=== PATIENT | female | born 1970 | race African-American/Black ===

== ENCOUNTER 2017-06-12 12:48 | Emergency (ER) | payer BC | END 2017-06-12 15:28 | disposition home or self-care (01) | LOC: D.ER 12:48 | DX: B02.9 Zoster without complications (principal); E11.9 Type 2 diabetes mellitus without complications; I10 Essential (primary) hypertension; F17.200 Nicotine dependence, unspecified, uncomplicated ==

== ENCOUNTER 2019-07-24 08:00 | Outpatient (CLI) | payer MEDICAID | END 2019-07-24 23:59 | disposition home or self-care (01) | LOC: D.MAMMO 08:00 | PROVIDERS: ATTEND Emergency Medicine | DX: Z12.31 Encounter for screening mammogram for malignant neoplasm of breast (principal) ==

== ENCOUNTER 2020-01-02 23:34 | Inpatient (IN) | payer MEDICAID ==
[~2020-01-02] VITALS: Ht 160 cm; Wt 149.7 kg
[2020-01-03 02:43] LABS: ANION GAP 9.8 mmol/L (8-16); BASOPHILS 0.1 % (0-2); CALCIUM 8.3 mg/dL (8.5-10.1); CARBON DIOXIDE 30.8 mmol/L (21.0-32.0); CREATININE - SERUM 1.1 mg/dL (0.6-1.3); EOSINOPHILS 0.1 % (0-7); HEMATOCRIT 38.9 % (36.0-48.0); HEMOGLOBIN 12.5 g/dL (12-16); IMMATURE GRANULOCYTES 0.3 % (0-5); LYMPHOCYTES 10.4 % (15-50); MCH 27.6 pg (26.0-34.0); MCHC 32.1 g/dL (31.0-37.0); MCV 85.9 fL (80.0-100.0); MEAN PLATELET VOLUME 11.1 fL (7.4-10.4); MONOCYTES 7.4 % (2-11); NEUTROPHILS 81.7 % (40-80); PLATELET COUNT 217 10x3/uL (130-400); POTASSIUM - SERUM 3.6 mmol/L (3.5-5.1); RBC 4.53 10x6/uL (4.00-5.40); RDW 15.5 % (11.5-14.5); WBC 16.7 10x3/uL (4.8-10.8)
[2020-01-03 02:49] LABS: ALBUMIN 2.4 g/dL (3.4-5.0); BILIRUBIN - TOTAL 0.58 mg/dL (0.2-1.3); PROTEIN - SERUM 7.8 g/dL (6.4-8.2)
--- NOTE | 2020-01-03 03:21 | NUR ---
NS BOLUS AND CLINDAMYCIN INFUSING ON ADMISSION.
--- NOTE | 2020-01-03 03:30 | NUR ---
PT ARRIVED TO UNIT VIA WHEELCHAIR, AMBULATED TO BATHROOM WITHOUT DIFFICULTY. HAD BOWEL MOVEMENT THEN WENT TO BED. AOX4, FRIEND AT BEDSIDE. NS BOLUS IN PROGRESS TO LEFT HAND. LEFT GROIN ABCESS. RED AND SWOLLEN, RED/BROWN DRAINAGE. STATES IT APPEARED THREE DAYS AGO AND HAD PROGRESSIVELY WORSENED EVEN AFTER CLEANING IT WITH ALCOHOL AND NEOSPORIN. STATES PAIN 9/10, JUST RECIEVED TYLENOL, DOES NOT WANT ANYTHING ELSE FOR PAIN AFTER OFFERING MORPHINE. REMINDED PT SHE IS NPO. VERBALIZED UNDERSTANDING. DENIES OTHER NEEDS AT THIS TIME. CL IN REACH, WILL CTM
[2020-01-03 03:56] VITALS: BP 116/56; BMI 58.5
[2020-01-03] MEDS ORDERED: ELAVIL25 MG PO (04:00)
[2020-01-03] MEDS ORDERED: NORVASC10 MG PO (04:00)
[2020-01-03] MEDS ORDERED: METOPROLOL TART50 MG PO (04:01)
[2020-01-03] MEDS ORDERED: ZANAFLEX4 MG PO (04:01)
[2020-01-03] MEDS ORDERED: COZAAR100 MG PO (04:01)
[2020-01-03] MEDS ORDERED: NOVOLOG MIX (04:04)
[2020-01-03 07:04] LABS: ANION GAP 12.4 mmol/L (8-16); CALCIUM 8.1 mg/dL (8.5-10.1); CARBON DIOXIDE 25.9 mmol/L (21.0-32.0); MAGNESIUM - SERUM 1.8 mg/dL (1.8-2.4); PHOSPHOROUS 2.6 mg/dL (2.5-4.9); POTASSIUM - SERUM 3.3 mmol/L (3.5-5.1)
[2020-01-03 07:05] LABS: APTT 34.7 SECONDS (22.8-39.4)
[2020-01-03 07:06] LABS: INR 1.14 (0.85-1.17); PROTIME 14.5 SECONDS (11.6-15.0)
[2020-01-03 07:08] LABS: BASOPHILS 0.1 % (0-2); EOSINOPHILS 0.1 % (0-7); HEMOGLOBIN 11.5 g/dL (12-16); IMMATURE GRANULOCYTES 0.3 % (0-5); LYMPHOCYTES 11.9 % (15-50); MCH 27.4 pg (26.0-34.0); MCHC 31.9 g/dL (31.0-37.0); MCV 85.9 fL (80.0-100.0); MEAN PLATELET VOLUME 11.5 fL (7.4-10.4); MONOCYTES 9.5 % (2-11); NEUTROPHILS 78.1 % (40-80); PLATELET COUNT 194 10x3/uL (130-400); RBC 4.19 10x6/uL (4.00-5.40); RDW 15.6 % (11.5-14.5); WBC 14.6 10x3/uL (4.8-10.8)
--- NOTE | 2020-01-03 07:44 | NUR ---
RESTING IN BED WITH EYES CLOSED, BREATHING EVEN AND NONLABORED, NO S/S OF DISTRESS, FRIEND AT THE BEDSIDE. IV LOCATED TO LEFT HAND RUNNING NS @ 125ML. WILL CONT TO MONITOR.
[2020-01-03 07:54] VITALS: BP 88/61
[2020-01-03 11:56] VITALS: BP 138/65
[2020-01-03 12:21] VITALS: BMI 58.4
[2020-01-03 15:08] VITALS: Ht 160 cm; Wt 149.7 kg
[2020-01-03 15:41] VITALS: BP 134/71
--- NOTE | 2020-01-03 16:06 | NUR ---
Scheduled today for I & D by Dr. Lord.
[2020-01-03 16:16] VITALS: BP 141/93
--- NOTE | 2020-01-03 16:24 | NUR ---
RECEIVED PT BACK FROM RECOVER RN KATELIN, PT IS AWAKE, ALERT AND ORIENTED ASKING FOR SOMETHING TO DRINK, OBTAINED POST OP VS AND VSS. SPOKE TO DR TONG AT DESK AND RESTARTED DIABETIC DIET. PT IS RESTING WELL, EASILY AWAKENED, NO S/SX OF DISTRESS. CONTINUE WITH PLAN OF CARE
--- NOTE | 2020-01-03 18:10 | NUR ---
PT IS SITTING UP IN BED EATING DINNER, C/O STINGING AND SORENESS IN AREA NOT SO MUCH PAIN. WENT OVER PAIN PUMP ORDERED WITH PT AND AT THIS POINT SHE IS DECLINING ROTOR BLADE INSTALLER AT HIS TIME, ENCOURAGED PT TO TRY AND USE IV PAIN MED RIGHT BEFORE DRESSING CHANGE IN THE MORNING IT WILL MOST LIKELY HURT AND BE VERY UNCOMFORTABLE. BED IN LOWEST POSITION, CL IN EACH CONTINUE WITH PLAN OF ACRE
--- NOTE | 2020-01-03 18:50 | NUR ---
PATIENT RESTING IN BED WITH EYES OPEN. NO S/S OF DISTRESS. NO C/O AT THIS TIME. PATIENT IS ALERT AND ORIENTATED. PATIENT HAS LEFT HAND IV NORMAL SALINE @ 125 ML/HR. IV IS PATENT WITHOUT REDNESS, SWELLING, OR TENDERNESS. PATIENT WOUND HAS A TOWEL OVER IT TO CATCH SOME OF THE DRAINAGE. THE WOUND ON THE INSIDE OF LEFT LEG IS DRAINING AND HAS SOME SWELLING AROUND, BUT PATIENT STATED, "IT FEELS A LOT BETTER THAN BEFORE." CALL LIGHT IN PLACE. WILL CONTINUE TO MONITOR.
[2020-01-03 19:30] VITALS: BP 122/71
[2020-01-04 00:30] VITALS: BP 103/60
[2020-01-04 05:00] VITALS: BP 109/56
[2020-01-04 05:07] LABS: BASOPHILS 0.1 % (0-2); EOSINOPHILS 0.2 % (0-7); HEMATOCRIT 35.3 % (36.0-48.0); HEMOGLOBIN 11.1 g/dL (12-16); IMMATURE GRANULOCYTES 0.4 % (0-5); LYMPHOCYTES 7.5 % (15-50); MCH 27.3 pg (26.0-34.0); MCHC 31.4 g/dL (31.0-37.0); MCV 86.9 fL (80.0-100.0); MEAN PLATELET VOLUME 11.3 fL (7.4-10.4); MONOCYTES 10.2 % (2-11); NEUTROPHILS 81.6 % (40-80); PLATELET COUNT 228 10x3/uL (130-400); RBC 4.06 10x6/uL (4.00-5.40); RDW 15.8 % (11.5-14.5); WBC 15.9 10x3/uL (4.8-10.8)
--- NOTE | 2020-01-04 05:09 | NUR ---
I have reviewed this patient and I concur with the Shift Assessment completed by the Licensed Practical Nurse today this shift.
[2020-01-04 05:17] LABS: CALCIUM 7.5 mg/dL (8.5-10.1); CARBON DIOXIDE 26.1 mmol/L (21.0-32.0); CREATININE - SERUM 0.9 mg/dL (0.6-1.3); MAGNESIUM - SERUM 1.7 mg/dL (1.8-2.4); PHOSPHOROUS 2.5 mg/dL (2.5-4.9)
[2020-01-04 05:25] LABS: POTASSIUM - SERUM 4.1 mmol/L (3.5-5.1)
--- NOTE | 2020-01-04 08:00 | NUR ---
PT HAS DRAINAGE IN INCISION AREA, STATED PAIN IS AT A 9 AND WOULD LIKE MORPHINE, EXPLAINED TO PT THAT SHE HAS A BULK MAIL CLERK ORDERED AND AGAIN EXPLAINED THE USE OF BULK MAIL CLERK AND PT SEEMED MORE COMFORTABLE WITH STARTING BULK MAIL CLERK. CHANGDE PT LINENS AND GAVE PT TOWEL TO PLACE OVER INCISION AREA TO CATCH DRAINAGE. WILL CHANGE PT WET TO DRY PACKING AFTER LUNCH, PT FRIEND AT BEDSIDE, NO S/SX OF DISTRESS O OTHER NEEDS VOICED BY PATIENT AT THIS TIME, CONTINUE WITH PLAN OF CARE
[2020-01-04 09:06] VITALS: BP 107/46
[2020-01-04 12:45] VITALS: BP 101/59
--- NOTE | 2020-01-04 14:40 | MORECARE ---
CASE MANAGEMENT DISCHARGE SUMMARY PATIENT: FLORIDA CHAHAL UNIT: [id number] ADM DATE: 01/03/20 AGE: 49 : 66 SEX: F ROOM/BED: D.2223 AUTHOR: DESHAUN JOHNSON PHYSICIAN: REFERRING PHYSICIAN: JASON MICHEL MD DATE OF SERVICE: 01/04/20 Discharge Plan Patient Name: FLORIDA CHAHAL [facility] [facility] 1970 Planned Disposition: Home with Home Health Anticipated Discharge Date: Discharge Date: Expected LOS: Initial Reviewer: [email or web address] Initial Review Date: 01/03/2020 Generated: 01/04/20 3:40 pm DCPIA - Discharge Planning Initial Assessment Updated by [email or web address]: Josefa Tatum on 01/04/20 2:40 pm * Is the patient Alert and Oriented? Yes * How many steps to enter\exit or inside your home? 3/0 * PCP Dr. Michel * Pharmacy [facility] * Preadmission Environment Home Alone * ADLs Independent * Equipment None * List name and contact numbers for known caregivers / representatives who currently or will assist patient after discharge: Lisette Jackson - [phone] Luisito Spencer [facility] - [phone] * Verbal permission to speak to the caregivers and representatives has been obtained from the patient. Yes * Community resources currently utilized None * Additional services required to return to the preadmission environment? No * Can the patient safely return to the preadmission environment? Yes * Has this patient been hospitalized within the prior 30 days at any hospital? No Patient Name: FLORIDA CHAHAL Page [id number] at 1440 All edits/amendments must be made on the electronic document DICTATION DATE: 01/04/20 1440 RANGE MANAGEMENT SPECIALIST: JESSENIA 01/04/20 1440 RPT#: [id number] DC DATE: STATUS: ADM IN [facility] [address] [place] [address] END OF REPORT
--- NOTE | 2020-01-04 14:49 | MORECARE ---
CASE MANAGEMENT DISCHARGE SUMMARY PATIENT: FLORIDA CHAHAL UNIT: [id number] ADM DATE: 01/03/20 AGE: 49 : 66 SEX: F ROOM/BED: D.2223 AUTHOR: ALEX,DOC PHYSICIAN: REFERRING PHYSICIAN: JASON MICHEL MD DATE OF SERVICE: 01/04/20 Discharge Plan Patient Name: FLORIDA CHAHAL Facility: [facility]:[place] : 1970 Planned Disposition: Home with Home Health Anticipated Discharge Date: Discharge Date: Expected LOS: Initial Reviewer: [email or web address] Initial Review Date: 01/03/2020 Generated: 01/04/20 3:48 pm Comments DCP- Discharge Planning Updated by [email or web address]: Josefa Tatum on 01/04/20 1:[address] Patient Name: FLORIDA CHAHAL Admission Status: ER Accout number: [id number] Admission Date: 01-03-2020 : 1970 Admission Diagnosis: Attending: JASON WALLER Current LOS: 1 Anticipated DC Date: Planned Disposition: Home with Home Health Primary Insurance: [place] PRIVATE OPTIONS [employer] Discharge Planning Comments: CM met with patient to complete initial dc planning assessment. CM educated patient on the CM role and verbal consent given by patient to complete assessment. Patient lives at home alone. I verified address and phone number on face sheet. At discharge patient plans to return and feels this is a safe discharge. CM discussed availability of home health, rehab services, and medical equipment. I informed patient that typically she would need home health after discharge for packing changes to her left groin. I informed her that she would need a teachable rental boats caretaker that could be available for home health to instruct on how to do her packing on days that home health was not there. She states that she has many friends that are nurses that could help with that. She is going to ask one of her friends today which home health agency she should choose. I left her a list from our SAMANTHA list on home health agencies. CM will continue to follow and will assist as needed with dc plans/needs. Operations Tech: Josefa Tatum DCPIA - Discharge Planning Initial Assessment Updated by [email or web address]: Josefa Tatum on 01/04/20 2:40 pm * Is the patient Alert and Oriented? Yes * How many steps to enter\exit or inside your home? 3/0 * PCP Dr. Michel * Pharmacy [facility] [address] * Preadmission Environment Home Alone * ADLs Independent * Equipment None * List name and contact numbers for known caregivers / representatives who currently or will assist patient after discharge: Lisette Jackson - [phone] Luisito Palmer [facility] - [phone] * Verbal permission to speak to the caregivers and representatives has been obtained from the patient. Yes * Community resources currently utilized None * Additional services required to return to the preadmission environment? No * Can the patient safely return to the preadmission environment? Yes * Has this patient been hospitalized within the prior 30 days at any hospital? No Last DP export: 01/04/20 1:40 pm Patient Name: FLORIDA CHAHAL Page [id number] at 1449 All edits/amendments must be made on the electronic document DICTATION DATE: 01/04/201447 COMPOUNDING TECHNICIAN: JESSENIA 01/04/201447 RPT#: [id number] DC DATE: STATUS: ADM IN [facility] [address] [place] [address] END OF REPORT
[2020-01-04 17:15] VITALS: BP 100/64
--- NOTE | 2020-01-04 18:53 | NUR ---
HAVE NOT SEEN ORDERS FOR DRESSING CHANGE, AWAITING DR TONG FOR ORDERS, SPOKE TO NURSE INTERNET CONSULTANT AND WAS TOLD SOMETIMES THE SURGEONS WILL WAIT A DAY BEFORE CHANGING PACKING. HAVE BEEN CHANGING TOWELS EVERY TIME PT GETS UP TO RESTROOM PT HAS DRAINAGE IN INCISONAL AREA. CONTINUE WITH PLAN OF CARE
--- NOTE | 2020-01-04 19:29 | NUR ---
LYING IN BED,WITHOUT NEEDS.CALL LIGHT IN REACH
[2020-01-04 19:30] VITALS: BP 129/64
--- NOTE | 2020-01-04 20:00 | NUR ---
PATIENT RESTING IN BED WITH EYES OPEN AND FRIEND AT BEDSIDE. NO S/S OF DISTRESS. NO C/O AT THIS TIME. PATIENT HAS IV IN THE R HAND NORMAL SALINE @ 125 ML/HR. PATIENT ALSO HAS A BEAMING INSPECTOR DILAUDID. IV IS PATENT WITHOUT REDNESS, SWELLING, OR TENDERNESS. PATIENT HAS PACKED WOUND IN THE LEFT GROIN/THIGH AREA. CALL LIGHT IN PLACE WILL CONTINUE TO MONITOR.
--- NOTE | 2020-01-04 20:00 | NUR ---
PATIENT RESTING IN BED WITH EYES CLOSED AND SPOUSE AT BEDSIDE. NO S/S OF DISTRESS. NO C/O AT THIS TIME. PATIENT HAS RIGHT UPPER ARM MIDLINE THAT IS SALINE LOC. IV IS PATENT WITHOUT REDNESS, SWELLING, OR TENDERNESS. PATIENT IS UP WITH ASSIST SINCE HIP HAS BEEN FOUNF TO BE FRACTURED. PATIENT PAIN MEDICATION SWITCHED BACK TO PERCOCET-10 BUT COMPLAINS, "IT IS JUST NOT CUTTING IT. I NEED IT FOUR HOURS." CALL LIGHT IN PLACE. WILL CONTINUE TO MONITOR.
[2020-01-05 00:30] VITALS: BP 117/61
--- NOTE | 2020-01-05 01:06 | NUR ---
I have reviewed this patient and I concur with the Shift Assessment completed by the Licensed Practical Nurse today this shift.
[2020-01-05 05:30] VITALS: BP 144/77
[2020-01-05 06:57] LABS: BASOPHILS 0.1 % (0-2); EOSINOPHILS 1.1 % (0-7); HEMATOCRIT 35.3 % (36.0-48.0); IMMATURE GRANULOCYTES 0.3 % (0-5); LYMPHOCYTES 13.4 % (15-50); MCH 26.8 pg (26.0-34.0); MCHC 31.2 g/dL (31.0-37.0); MCV 86.1 fL (80.0-100.0); MEAN PLATELET VOLUME 10.6 fL (7.4-10.4); MONOCYTES 8.8 % (2-11); NEUTROPHILS 76.3 % (40-80); PLATELET COUNT 225 10x3/uL (130-400); RDW 15.7 % (11.5-14.5)
[2020-01-05 07:00] VITALS: BP 127/72
[2020-01-05 07:04] LABS: CALCIUM 8.1 mg/dL (8.5-10.1); CARBON DIOXIDE 27.3 mmol/L (21.0-32.0); CHLORIDE - SERUM 102 mmol/L (98-107); CREATININE - SERUM 0.8 mg/dL (0.6-1.3); PHOSPHOROUS 2.7 mg/dL (2.5-4.9); POTASSIUM - SERUM 3.6 mmol/L (3.5-5.1); SODIUM 137 mmol/L (136-145); eGFR NON AFRICAN AMERICAN 80 mL/min (90-120)
[2020-01-05 07:06] LABS: CALC OSMOLALITY 272 mosm/kg (275-300); GLUCOSE 138 mg/dL (74-106); UREA NITROGEN 4 mg/dL (7-18)
[2020-01-05 07:28] LABS: WBC 11.3 10x3/uL (4.8-10.8)
--- NOTE | 2020-01-05 08:00 | NUR ---
ASSESSMENT PER FLOW SHEET. PT IS WITHOUT DISTRESS.DENIES NEEDS.FAMILY AT BEDSIDE
[2020-01-05 10:44] VITALS: BP 137/74
[2020-01-05 13:24] VITALS: BP 118/68
--- NOTE | 2020-01-05 16:59 | MORECARE ---
CASE MANAGEMENT DISCHARGE SUMMARY PATIENT: FLORIDA CHAHAL UNIT: [id number] ADM DATE: 01/03/20 AGE: 49 : 66 SEX: F ROOM/BED: D.2223 AUTHOR: ALEX,DOC PHYSICIAN: REFERRING PHYSICIAN: JASON MICHEL MD DATE OF SERVICE: 01/05/20 Discharge Plan Patient Name: FLORIDA CHAHAL Facility: [facility]:[place] : 1970 Planned Disposition: Home with Home Health Anticipated Discharge Date: Discharge Date: Expected LOS: Initial Reviewer: [email or web address] Initial Review Date: 01/03/2020 Generated: 01/05/20 5:58 pm Comments DCP- Discharge Planning Updated by [email or web address]: Josefa Tatum on 01/05/20 3:[address] Met with patient for the third time today, she was supposed to speak with friends about home health. States she hasn't been able to talk to anyone again today. She has the [facility] and [facility] I called [facility] liaison for [facility], and order and clinical faxed. CM will continue to follow and assist with discharge planning/needs. DCP- Discharge Planning Updated by [email or web address]: Josefa Tatum on 01/04/20 1:[address] Patient Name: FLORIDA CHAHAL Admission Status: ER Accout number: [id number] Admission Date: 01-03-2020 : 1970 Admission Diagnosis: Attending: JASON WALLER Current LOS: 1 Anticipated DC Date: Planned Disposition: Home with Home Health [place] Insurance: [place] PRIVATE OPTIONS [facility] Discharge Planning Comments: CM met with patient to complete initial dc planning assessment. CM educated patient on the CM role and verbal consent given by patient to complete assessment. Patient lives at home alone. I verified address and phone number on face sheet. At discharge patient plans to return and feels this is a safe discharge. CM discussed availability of home health, rehab services, and medical equipment. I informed patient that typically she would need home health after discharge for packing changes to her left groin. I informed her that she would need a teachable home visit field care manager that could be available for home health to instruct on how to do her packing on days that home health was not there. She states that she has many friends that are nurses that could help with that. She is going to ask one of her friends today which home health agency she should choose. I left her a list from our SAMANTHA list on home health agencies. CM will continue to follow and will assist as needed with dc plans/needs. In School Suspension Coordinator: Josefa Reddysusie DCPIA - Discharge Planning Initial Assessment Updated by [email or web address]: Josefa Deepti on 01/04/20 2:40 pm * Is the patient Alert and Oriented? Yes * How many steps to enter\exit or inside your home? 3/0 * PCP Dr. Michel * Pharmacy [facility] on [address] * Preadmission Environment Home Alone * ADLs Independent * Equipment None * List name and contact numbers for known caregivers / representatives who currently or will assist patient after discharge: Lisette Jackson - [phone] Luisito Del [facility] - [phone] * Verbal permission to speak to the caregivers and representatives has been obtained from the patient. Yes * Community resources currently utilized None * Additional services required to return to the preadmission environment? No * Can the patient safely return to the preadmission environment? Yes * Has this patient been hospitalized within the prior 30 days at any hospital? No External Providers External Provider: [facility] Next Contact Date: Service Request Date: Service Type: Resolution: Reviewer: Comments: Coverage Notice Reviewer: [email or web address] - Josefa Tatum Notice Issued Date-Time: 01/05/2020 16:53 Notice Type: Patient Choice Letter Notice Delivered To: Patient Relationship to Patient: Self Bag Making Machine Operator Name: Delivery Method: HAND - Hand Delivered Nadia Days: Prior Verbal Notification: Recipient Understood Notice: Yes Recipient Signature: Yes Med Rec Note Co-signed by Attending: Coverage Notice Comment: [facility] for 1. [facility]. [facility] Last DP export: 01/04/20 1:49 pm Patient Name: FLORIDA CHAHAL Page [phone] at 1659 All edits/amendments must be made on the electronic document DICTATION DATE: 01/05/201657 AUTOMOBILE BODY REPAIRER: JESSENIA 01/05/201657 RPT#: [id number] DC DATE: STATUS: ADM IN [facility] [address] [facility] [place] [address] END OF REPORT
[2020-01-05 17:59] VITALS: BP 106/69
--- NOTE | 2020-01-05 19:37 | NUR ---
PATIENT WITH HOB ELEVATED. EYES OPEN SPONTANEOUSLY BUT PATIENT DOES NOT RESPOND VERBALLY, ONLY MOANS WITH REPOSITIONING. SEE PREVIOUS NOTE ABOUT IV. PATIENT HAS BRUISES AROUND THROUGH AREA. WEARING 2L NC AT THIS TIME. MULTIPLE BRUISES TO BOTTOM, ARMS, HIPS, AND LEGS. ABDOMEN SOFT TO PALPATION. BOWEL SOUNDS HYPOACTIVE. NO DISTRESS NOTED. CLOSE TO NURSES STATION FOR MONITORING. FALL PRECAUTIONS IN PLACE, CATA ALARM ON. SCD'S ON BILATERALLY.
--- NOTE | 2020-01-05 19:37 | NUR ---
ASSESSING PATIENT. IV TO THE LEFT UPPER ARM INFILTRATED. DC'D, ELEVATED, AND WARM PACK APPLIED.
--- NOTE | 2020-01-05 21:35 | NUR ---
DRESSING CHANGED COMPLETED PER ORDER.
[2020-01-06 01:39] VITALS: BP 121/68
--- NOTE | 2020-01-06 03:39 | NUR ---
I have reviewed this patient and I concur with the Shift Assessment completed by the Licensed Practical Nurse today this shift.
--- NOTE | 2020-01-06 04:56 | NUR ---
HAT IN ROOM TO OBTAIN URINE SAMPLE
[2020-01-06 05:12] LABS: BASOPHILS 0.2 % (0-2); EOSINOPHILS 1.9 % (0-7); HEMATOCRIT 33.8 % (36.0-48.0); HEMOGLOBIN 10.6 g/dL (12-16); IMMATURE GRANULOCYTES 0.6 % (0-5); LYMPHOCYTES 10.6 % (15-50); MCHC 31.4 g/dL (31.0-37.0); MCV 86.2 fL (80.0-100.0); NEUTROPHILS 77.7 % (40-80); PLATELET COUNT 261 10x3/uL (130-400); RBC 3.92 10x6/uL (4.00-5.40); RDW 15.7 % (11.5-14.5); WBC 10.8 10x3/uL (4.8-10.8)
[2020-01-06 05:40] LABS: CALC OSMOLALITY 272 mosm/kg (275-300); CALCIUM 7.8 mg/dL (8.5-10.1); CARBON DIOXIDE 28.4 mmol/L (21.0-32.0); CHLORIDE - SERUM 101 mmol/L (98-107); CREATININE - SERUM 0.8 mg/dL (0.6-1.3); MAGNESIUM - SERUM 1.8 mg/dL (1.8-2.4); PHOSPHOROUS 2.7 mg/dL (2.5-4.9); POTASSIUM - SERUM 3.7 mmol/L (3.5-5.1); SODIUM 135 mmol/L (136-145); UREA NITROGEN 4 mg/dL (7-18); eGFR NON AFRICAN AMERICAN 80 mL/min (90-120)
[2020-01-06 05:51] LABS: GLUCOSE 214 mg/dL (74-106)
[2020-01-06 06:02] VITALS: BP 130/65
--- NOTE | 2020-01-06 08:21 | NUR ---
AWAKE AND ALERT. ORIENTED X3. NO C/O AT THIS TIME. LUNGS ARE CLEAR BILATERALLY, OCCASSIONALLY PRODUCTIVE COUGH NOTED. SKIN IS INTACT WITHOUT REDNESS EXCEPT WOUND TO LEFT GROIN WHICH HAS A DRY INTACT DRESSING IN PLACE. IV TO RIGHT HAND IS PATENT WITHOUT REDNESS AT INSERTION SITE. DENIES NEEDS. NO BM IN 2 DAYS. WILL MONITOR.
[2020-01-06 08:38] VITALS: BP 143/81
--- NOTE | 2020-01-06 09:00 | NUR ---
UP TO BR WITH ONE PERSON MIN ASSIST. URINE CLEAR YELLOW. SPECIMEN SENT TO LAB. ATE MOST OF BREAKFAST. DENIES NEEDS. REPORTS GOOD PAIN MANAGEMENT WITH USE OF POUNCING MACHINE OPERATOR.
[2020-01-06 09:09] LABS: BILIRUBIN NEGATIVE (NEGATIVE); GLUCOSE 100 mg/dL (NEGATIVE); KETONE SMALL mg/dL (NEGATIVE); NITRITE NEGATIVE (NEGATIVE); SPECIFIC GRAVITY 1.015 (1.005-1.020); UROBILINOGEN NORMAL (NORMAL)
[2020-01-06 09:10] LABS: AMORPHOUS SEDIMENT >1+ /lpf (NONE SEEN); BACTERIA MODERATE /hpf (NEGATIVE); EPITHELIAL CELLS 0-5 /hpf (0-5); RED CELLS - URINE 0-5 /hpf (0-5); WHITE CELLS - URINE 0-5 /hpf (NEGATIVE)
[2020-01-06 13:36] VITALS: BP 126/73
[2020-01-06 18:27] VITALS: BP 118/70
--- NOTE | 2020-01-06 18:45 | NUR ---
RESTING QUIETLY IN BED. DENIES NEEDS. NO CHANGES NOTED.
[2020-01-06 19:30] VITALS: BP 136/62
--- NOTE | 2020-01-07 00:45 | NUR ---
RIGHT HAND IV SWOLLEN AND TENDER. REMOVED IV CATHETER INTACT. RESITED 22G IV TO LEFT FOREARM 2ND ATTEMPT. HUNG SCHEDULED ABX. NO OTHER NEEDS. WILL CONTINUE TO MONITOR.
[2020-01-07 00:46] VITALS: BP 134/72
[2020-01-07 04:30] VITALS: BP 149/74
[2020-01-07 05:31] LABS: BASOPHILS 0.2 % (0-2); EOSINOPHILS 2.4 % (0-7); HEMATOCRIT 33.6 % (36.0-48.0); HEMOGLOBIN 10.5 g/dL (12-16); IMMATURE GRANULOCYTES 1.1 % (0-5); LYMPHOCYTES 17.6 % (15-50); MCH 26.9 pg (26.0-34.0); MCHC 31.3 g/dL (31.0-37.0); MCV 86.2 fL (80.0-100.0); MEAN PLATELET VOLUME 9.8 fL (7.4-10.4); NEUTROPHILS 68.7 % (40-80); PLATELET COUNT 280 10x3/uL (130-400); RDW 15.7 % (11.5-14.5); WBC 8.3 10x3/uL (4.8-10.8)
[2020-01-07 06:05] LABS: ALBUMIN 1.8 g/dL (3.4-5.0); ALKALINE PHOSPHATASE 142 U/L (30-120); ALT (SGPT) 23 U/L (10-68); BILIRUBIN - TOTAL 0.14 mg/dL (0.2-1.3); CALC OSMOLALITY 273 mosm/kg (275-300); CARBON DIOXIDE 29.8 mmol/L (21.0-32.0); CHLORIDE - SERUM 100 mmol/L (98-107); CREATININE - SERUM 0.8 mg/dL (0.6-1.3); GLUCOSE 189 mg/dL (74-106); MAGNESIUM - SERUM 1.8 mg/dL (1.8-2.4); PHOSPHOROUS 3.2 mg/dL (2.5-4.9); POTASSIUM - SERUM 3.4 mmol/L (3.5-5.1); PROTEIN - SERUM 6.6 g/dL (6.4-8.2); SODIUM 136 mmol/L (136-145); UREA NITROGEN 5 mg/dL (7-18); eGFR NON AFRICAN AMERICAN 80 mL/min (90-120)
[2020-01-07 09:11] VITALS: BP 128/78
[2020-01-07 13:29] VITALS: BP 135/86
[2020-01-07 17:10] VITALS: BP 140/96
[2020-01-07 19:30] VITALS: BP 137/64
--- NOTE | 2020-01-08 | NUR ---
REMOVED PACKING TO LEFT GROIN INCISION. MODERATE SEROSANG DRAINAGE. REPACKED WITH SALINE SOAKED KERLIX AND COVERED WITH DRY GAUZE. APPLIED MOIST HEAT PACK TO SWOLLEN GROIN. PRE-MEDICATED WITH NORCO-10 ABOUT AN HOUR BEFORE DRESSING CHANGE. NO OTHER NEEDS. WILL CONTINUE TO MONITOR.
[2020-01-08 00:41] VITALS: BP 147/69
[2020-01-08 04:30] VITALS: BP 152/71
[2020-01-08 06:55] LABS: BASOPHILS 0.2 % (0-2); EOSINOPHILS 2.1 % (0-7); HEMATOCRIT 33.1 % (36.0-48.0); HEMOGLOBIN 10.4 g/dL (12-16); IMMATURE GRANULOCYTES 1.6 % (0-5); LYMPHOCYTES 19.4 % (15-50); MCH 26.9 pg (26.0-34.0); MCHC 31.4 g/dL (31.0-37.0); MCV 85.5 fL (80.0-100.0); MEAN PLATELET VOLUME 10.4 fL (7.4-10.4); MONOCYTES 10.8 % (2-11); NEUTROPHILS 65.9 % (40-80); PLATELET COUNT 324 10x3/uL (130-400); RBC 3.87 10x6/uL (4.00-5.40); RDW 15.8 % (11.5-14.5)
[2020-01-08 07:07] LABS: ALBUMIN 1.9 g/dL (3.4-5.0); ANION GAP 9.3 mmol/L (8-16); BILIRUBIN - TOTAL 0.22 mg/dL (0.2-1.3); CALCIUM 8.3 mg/dL (8.5-10.1); CARBON DIOXIDE 30.4 mmol/L (21.0-32.0); CREATININE - SERUM 0.9 mg/dL (0.6-1.3); POTASSIUM - SERUM 3.7 mmol/L (3.5-5.1); PROTEIN - SERUM 6.9 g/dL (6.4-8.2)
--- NOTE | 2020-01-08 07:10 | NUR ---
PT RESTING IN BED. NO SIGNS OF DISTRESS. IV TO LEFT FORARM PATENT NO REDNESS OR TENDERNESS. INCISION TO LEFT GROIN AREA. DRESSING CLEAN AND INTACT. DENIES ANY FURTHER NEED AT THIS TIME. CALL LIGHT IN REACH. BED LOW POSITION. FAMILY AT BEDSIDE AT THIS TIME.
[2020-01-08 09:04] VITALS: BP 161/73
--- NOTE | 2020-01-08 10:23 | MORECARE ---
CASE MANAGEMENT DISCHARGE SUMMARY PATIENT: FLORIDA CHAHAL UNIT: [id number] ADM DATE: 01/03/20 AGE: 49 : 66 SEX: F ROOM/BED: D.2223 AUTHOR: ALEX,DOC PHYSICIAN: REFERRING PHYSICIAN: JASON MICHEL MD DATE OF SERVICE: 01/08/20 Discharge Plan Patient Name: FLORIDA CHAHAL Facility: [facility]:[place] : 1970 Planned Disposition: Home with Home Health Anticipated Discharge Date: Discharge Date: Expected LOS: Initial Reviewer: [email or web address] Initial Review Date: 01/03/2020 Generated: 01/08/20 11:22 am Comments DCP- Discharge Planning Updated by [email or web address]: Josefa Deepti on 01/08/20 9:[address] [facility] is out of network for insurance. Referral for home health sent to [facility] and clinical faxed. CM will continue to follow and assist with discharge planning/needs. DCP- Discharge Planning Updated by [email or web address]: Josefa Reddysusie on 01/05/20 3:[address] Met with patient for the third time today, she was supposed to speak with friends about home health. States she hasn't been able to talk to anyone again today. She has the list and chose [facility]. I called [facility] liaison for [facility], and order and clinical faxed. CM will continue to follow and assist with discharge planning/needs. DCP- Discharge Planning Updated by [id number]: Josefa Reddysusie on 01/04/20 1:[address] Patient Name: FLORIDA CHAHAL Admission Status: ER Accout number: [id number] Admission Date: 01-03-2020 : 1970 Admission Diagnosis: Attending: JASON WALLER Current LOS: 1 Anticipated DC Date: Planned Disposition: Home with Home Health Primary Insurance: [place] PRIVATE OPTIONS [facility] Discharge Planning Comments: CM met with patient to complete initial dc planning assessment. CM educated patient on the CM role and verbal consent given by patient to complete assessment. Patient lives at home alone. I verified address and phone number on face sheet. At discharge patient plans to return and feels this is a safe discharge. CM discussed availability of home health, rehab services, and medical equipment. I informed patient that typically she would need home health after discharge for packing changes to her left groin. I informed her that she would need a teachable patient centered care specialist that could be available for home health to instruct on how to do her packing on days that home health was not there. She states that she has many friends that are nurses that could help with that. She is going to ask one of her friends today which home health agency she should choose. I left her a list from our SAMANTHA list on home health agencies. CM will continue to follow and will assist as needed with dc plans/needs. Advertising Layout Worker: Josefa Tatum DCPIA - Discharge Planning Initial Assessment Updated by [email or web address]: Josefa Deepti on 01/04/20 2:40 pm * Is the patient Alert and Oriented? Yes * How many steps to enter\exit or inside your home? 3/0 * PCP Dr. Michel * Pharmacy [facility] on [facility] * Preadmission Environment Home Alone * ADLs Independent * Equipment None * List name and contact numbers for known caregivers / representatives who currently or will assist patient after discharge: Lisette Jackson - [phone] Luisito Palmer [facility] - [phone] * Verbal permission to speak to the caregivers and representatives has been obtained from the patient. Yes * Community resources currently utilized None * Additional services required to return to the preadmission environment? No * Can the patient safely return to the preadmission environment? Yes * Has this patient been hospitalized within the prior 30 days at any hospital? No External Providers External Provider: [facility] Next Contact Date: Service Request Date: Service Type: Resolution: Reviewer: Comments: Coverage Notice Reviewer: [email or web address] - Josefa Deepti Notice Issued Date-Time: 01/05/2020 16:53 Notice Type: Patient Choice Letter Notice Delivered To: Patient Relationship to Patient: Self Sheet Metal Assembler And Riveter Name: Delivery Method: HAND - Hand Delivered Nadia Days: Prior Verbal Notification: Recipient Understood Notice: Yes Recipient Signature: Yes Med Rec Note Co-signed by Attending: Coverage Notice Comment: [facility] for [facility]. [facility] Last DP export: 01/05/20 3:59 pm Patient Name: FLORIDA CHAHAL Page [phone] at 1023 All edits/amendments must be made on the electronic document DICTATION DATE: 01/08/[address] TRAIN DRIVER: JESSENIA 01/08/20 1022 RPT#: [id number] DC DATE: STATUS: ADM IN [facility] [address] [place] [address] END OF REPORT
[2020-01-08 13:34] VITALS: BP 149/81
--- NOTE | 2020-01-08 14:28 | NUR ---
Nutrition follow-up: Diet: ADA consistent CHO PO intake 75-100% of meals labs reviewed Wt: 329# PO intake good at this time Will continue to provide food choices and honor food peferences within diet restrictions. RDN following.
--- NOTE | 2020-01-08 16:44 | NUR ---
I have reviewed this patient and I concur with the Shift Assessment completed by the Licensed Practical Nurse today this shift.
[2020-01-08 16:55] VITALS: BP 172/82
[2020-01-08 20:47] VITALS: BP 164/90
--- NOTE | 2020-01-08 22:51 | NUR ---
PT SITTING UP IN BED CONCERNED ABOUT BP SLOWLY RISING BACK UP. PT BP MEDICATIONS HAVE BEEN PLACED ON HOLD SINCE ADMIT, WILL CHECK WITH DR'S IN THE MORNING AFTER PT SURGERY. NO OTHER NEEDS VOICED, CL IN REACH CONTINUE WITH PLAN OF CARE
--- NOTE | 2020-01-08 23:48 | NUR ---
I have reviewed this patient and I concur with the Shift Assessment completed by the Licensed Practical Nurse today this shift.
--- NOTE | 2020-01-08 23:56 | NUR ---
PIV TO LFA INFILTRATED, REMOVED, TIP INTACT. NEW PIV STARTED IN LFA, X2 ATTEMPTS. 20G, SL. PT TOLERATED WELL. NO SIGNS OF DISTRESS. PT DENIES ANY OTHER PAINS OR NEEDS AT THIS TIME. CL IN REACH, BED IN LOWEST POSITION.
[2020-01-09 01:13] VITALS: BP 154/92
[2020-01-09 04:55] VITALS: BP 157/83
[2020-01-09 05:18] LABS: BASOPHILS 0.2 % (0-2); EOSINOPHILS 2.1 % (0-7); HEMATOCRIT 33.1 % (36.0-48.0); HEMOGLOBIN 10.4 g/dL (12-16); IMMATURE GRANULOCYTES 1.3 % (0-5); LYMPHOCYTES 18.6 % (15-50); MCH 26.9 pg (26.0-34.0); MCHC 31.4 g/dL (31.0-37.0); MCV 85.8 fL (80.0-100.0); MEAN PLATELET VOLUME 9.5 fL (7.4-10.4); MONOCYTES 8.6 % (2-11); NEUTROPHILS 69.2 % (40-80); PLATELET COUNT 340 10x3/uL (130-400); RBC 3.86 10x6/uL (4.00-5.40); RDW 15.6 % (11.5-14.5); WBC 8.7 10x3/uL (4.8-10.8)
[2020-01-09 05:48] LABS: ALBUMIN 2.1 g/dL (3.4-5.0); ANION GAP 10.2 mmol/L (8-16); BILIRUBIN - TOTAL 0.18 mg/dL (0.2-1.3); CALCIUM 8.6 mg/dL (8.5-10.1); CARBON DIOXIDE 30.3 mmol/L (21.0-32.0); CREATININE - SERUM 0.9 mg/dL (0.6-1.3); POTASSIUM - SERUM 3.5 mmol/L (3.5-5.1); PROTEIN - SERUM 6.9 g/dL (6.4-8.2)
--- NOTE | 2020-01-09 08:25 | NUR ---
PT INQUIRED ON HOW HER FRIENDS OR FAMILY CAN GET MORE INFORMATION ABOUT HER TREATMENT PLAN AND INFECTION, ASKED PT IF SHE HAS SET UP A CODE FOR HER ACCOUNT AND EXPLAINED THAT WHOMEVER SHE CHOSE TO GIVE THAT INFORMATION TO WE WOULD BE ABLE TO GIVE THEM INFORMATION REQUESTED. NO S/SX OF DISTRESS, ADMINISTERED SCHEDULED MEDICATION. CL IN REACH, BED IN LOWEST POSITION, CONTINUE WITH PLAN OF CARE
[2020-01-09 08:32] LABS: % SATURATION 20 % (15-55); IRON 35 ug/dl (35-150); TOTAL IRON BIND CAPACITY 168 ug/dl (260-445); UNSAT IRON BIND CAPACITY 133 ug/dl (150-375)
[2020-01-09 09:17] VITALS: BP 174/95
[2020-01-09 12:23] VITALS: BP 139/75
--- NOTE | 2020-01-09 14:46 | NUR ---
PT LYING IN BED AWAITING SURGERY, CALLED SURGERY AND SPOKE TO PATIENCE IN REGARDS TO TIME AND PER PATIENCE PT IS STILL ON SCHEDULE JUST WAITING FOR A ROOM. RELAYED MESSAGE TO PT, NO OTHER NEEDS VOICED, CONTINUE WITH PLAN OF CARE
--- NOTE | 2020-01-09 14:53 | NUR ---
I have reviewed this patient and I concur with the Shift Assessment completed by the Licensed Practical Nurse today this shift.
[2020-01-09 17:03] VITALS: BP 158/90
--- NOTE | 2020-01-09 17:55 | OP ---
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 PROCEDURES: Wide excisional debridement with marsupialization and packing of Breanne gangrene of the left side of the perineum. SURGEON: Francisco Javier Tong MD PAPER DELIVERER: None. BLOOD LOSS: 100 cc. ANESTHESIA: General. COMPLICATIONS: None. The risks, possible complications and alternatives to the procedure were explained to the patient. She elects to proceed. The discussion specifically included, but was not limited to, bleeding requiring emergency reoperation, infection, possible need for additional debridement procedures. DESCRIPTION OF PROCEDURE: The patient was conveyed to the operating room urgently on 01/03/2020. General anesthesia was induced by the anesthesia staff. The patient was placed in the lithotomy position. The perineum was sterilely prepped and draped. The area in question is a roll of adipose tissue that was lateral to the labia majora but was also medial to the left thigh. There was a draining area. Through the use of double curvilinear incisions, I incised the skin and subcutaneous tissue. Dimensions of the debridement, including margins, measures 8.0 x 4.2 cm included skin and subcutaneous tissue as well as abscess cavity. I then entered the abscess cavity and was able to bluntly debride necrotic fat in a piecemeal fashion. Hemostasis was achieved with electrocautery. I irrigated with hydrogen peroxide after cultures have been obtained. I then marsupialized the wound with a running locking 3-0 Vicryl Rapide suture. I then packed the wound with two 6-inch Kerlixes that were tied together and soaked in hydrogen peroxide. A sterile dressing was then applied. The patient was then extubated and conveyed to post-anesthesia care unit where she was in stable condition. TRANSINT:[id number] Voice Confirmation ID: [id number] DOCUMENT ID: [id number] OPERATIVE REPORT [id number] FLORIDA CHAHAL ROBERT MD at 1755 CC: [id number] DICTATION DATE: 01/03/20 1521 SCADA ENGINEER: 01/04/20 0307 ADM IN [facility] [address] [id number]
[2020-01-09 20:31] VITALS: BP 165/83
[2020-01-10 00:40] VITALS: BP 151/77
--- NOTE | 2020-01-10 04:45 | NUR ---
PT RESTING IN BED. EYES CLOSED. NO SIGNS OF DISTRESS. BREATHING EVEN AND UNLABORED. IV SITE LT FA DRESSING CLEAN DRY AND INTACT. NO SIGNS OF INFECTION OR INFULTRATION. LUNG SOUNDS CLEAR. BOWEL SOUNDS ACTIVE. DRESSING LT GROIN CLEAN DRY AND INTACT. WILL CONTINUE PLAN OF CARE. CALL LIGHT IN REACH. BED LOWERED AND LOCKED.
--- NOTE | 2020-01-10 04:47 | NUR ---
I have reviewed this patient and I concur with the Shift Assessment completed by the Licensed Practical Nurse today this shift.
[2020-01-10 05:10] VITALS: BP 127/88
[2020-01-10 09:05] VITALS: BP 147/78
[2020-01-10 10:30] LABS: BASOPHILS 0.2 % (0-2); EOSINOPHILS 2.2 % (0-7); HEMATOCRIT 30.9 % (36.0-48.0); HEMOGLOBIN 9.5 g/dL (12-16); IMMATURE GRANULOCYTES 1.7 % (0-5); MCH 26.5 pg (26.0-34.0); MCHC 30.7 g/dL (31.0-37.0); MCV 86.3 fL (80.0-100.0); MEAN PLATELET VOLUME 8.9 fL (7.4-10.4); MONOCYTES 7.6 % (2-11); NEUTROPHILS 64.3 % (40-80); RBC 3.58 10x6/uL (4.00-5.40); RDW 15.7 % (11.5-14.5); WBC 8.3 10x3/uL (4.8-10.8)
[2020-01-10 10:36] LABS: PLATELET COUNT 261 10x3/uL (130-400)
[2020-01-10 10:49] LABS: ALBUMIN 2.1 g/dL (3.4-5.0); ANION GAP 9.1 mmol/L (8-16); BILIRUBIN - TOTAL 0.21 mg/dL (0.2-1.3); CALCIUM 8.4 mg/dL (8.5-10.1); CARBON DIOXIDE 31.8 mmol/L (21.0-32.0); CREATININE - SERUM 0.9 mg/dL (0.6-1.3); POTASSIUM - SERUM 3.9 mmol/L (3.5-5.1)
[2020-01-10 11:04] VITALS: BP 140/73
--- NOTE | 2020-01-10 13:07 | NUR ---
RECEIVED PT BACK FROM RECOVERY, PT IS ASLEEP AND EASILY AWAKENED, NO S/SX OF DISTRESS, CL IN REACH FAMILY AND FRIENDS AT BEDSIDE, CONTINUE WITH PLAN OF CARE
--- NOTE | 2020-01-10 15:30 | NUR ---
LYING IN BED,WITHOUT DISTRESS.CALL LIGHT IN REACH
--- NOTE | 2020-01-10 16:21 | NUR ---
PT LYING IN BED RESTING, NO S/SX OF DISTRESS, CL IN REACH, FRIEND AT BEDSIDE, CONTINUE WITH PLAN OF CARE
[2020-01-10 17:31] VITALS: BP 167/89
[2020-01-10 20:40] VITALS: BP 141/84
[2020-01-11 04:12] VITALS: BP 145/56
--- NOTE | 2020-01-11 04:17 | NUR ---
I have reviewed this patient and I concur with the Shift Assessment completed by the Licensed Practical Nurse today this shift.
--- NOTE | 2020-01-11 04:44 | NUR ---
PT RESTING IN BED. EYES CLOSED. NO SIGNS OF DISTRESS. BREATHING EVEN AND UNLABORED. IV SITE RT FA DESSING CLEAN DRY AND INTACT. NO SIGNS OF INFECTION OR INFULTRATION. 4LO2 NASAL CANNULA. BOWEL SOUNDS ACTIVE. LUNG SOUNDS CLEAR. DRESSING LT GROIN. CLEAN DRY AND INTACT. WILL CONTINUE PLAN OF CARE. CALL LIGHT IN REACH. BED LOWERED AND LOCKED. BED RAILS UPX2.
[2020-01-11 05:16] LABS: BASOPHILS 0.2 % (0-2); EOSINOPHILS 2.6 % (0-7); HEMATOCRIT 28.4 % (36.0-48.0); HEMOGLOBIN 8.7 g/dL (12-16); LYMPHOCYTES 14.9 % (15-50); MCH 26.9 pg (26.0-34.0); MCHC 30.6 g/dL (31.0-37.0); MCV 87.7 fL (80.0-100.0); MEAN PLATELET VOLUME 9.7 fL (7.4-10.4); MONOCYTES 7.7 % (2-11); NEUTROPHILS 73.6 % (40-80); PLATELET COUNT 310 10x3/uL (130-400); RBC 3.24 10x6/uL (4.00-5.40)
[2020-01-11 05:34] LABS: ANION GAP 7.9 mmol/L (8-16); BILIRUBIN - TOTAL 0.21 mg/dL (0.2-1.3); CALCIUM 8.1 mg/dL (8.5-10.1); CARBON DIOXIDE 32.7 mmol/L (21.0-32.0); CREATININE - SERUM 0.9 mg/dL (0.6-1.3); POTASSIUM - SERUM 3.6 mmol/L (3.5-5.1); PROTEIN - SERUM 6.5 g/dL (6.4-8.2)
--- NOTE | 2020-01-11 07:18 | NUR ---
PT UP TO RESTROOM, MODERATE DRAIANAGE, PT STATES PAIN IS AT A 9 BUT UNALE TO ADMINISTER PAIN MEDICATION TIME IS TOO SOON, EXPLAINED TO PT I WILL HAVE HER PAIN MEDS IN WITH HER MORNING MEDS, PT DRESSING WAS CHANGED BY ME LAST NIGHT BEFORE SHIFT CHANGE AND PT HAD A LOT OF DRAINAGE, DID NOT CHANGE PACKING ONLY TOOK OFF AND REPLACED ABD PADS. DID THE SAME TIS MORNING AFTER PT WAS UP TO RESTROOM. WILL CHANGE PACKING AFTER DR HAS SEEN INCISION. CONTINUE WITH PLAN OF CARE
[2020-01-11 09:38] VITALS: BP 145/77
[2020-01-11 13:09] VITALS: BP 125/79
--- NOTE | 2020-01-11 13:27 | NUR ---
I have reviewed this patient and I concur with the Shift Assessment completed by the Licensed Practical Nurse today this shift.
--- NOTE | 2020-01-11 16:00 | NUR ---
FINALLY RECEIVED DAKINS SOLUTION FROM PHARMACY, REMOVED PT'S DRESSING AND AND CLEANED PT WOUND WITH STERILE SALIINE DUE TO PT STATING THAT THE TOP OF HER WOUND WAS BURNING. REPACKED WOUND WITH DAKINS SOAKED KERLEX AND THEN 2 ABD PADS ON TOP AND TAPED EDGES. PT STATED WOUND FELT BETTER AFTERWARDS. NO OTHER NEEDS VOICED, CL IN REACH. CONTINUE WITH PLAN OF CARE
[2020-01-11 16:46] VITALS: BP 132/69
--- NOTE | 2020-01-11 22:05 | NUR ---
PATIENT IS AAOX 4, NO RESP DISTRESS, IV SITE WITHOUT TENDERNESS. DRESSING IS INTACT. PATIENT IS ABLE TO VOICE ALL CONCERNS AND NEEDS. DENIES PAIN. WILL MONITOR.
[2020-01-12] VITALS: BP 127/52
[2020-01-12 04:00] VITALS: BP 147/89
[2020-01-12 06:07] LABS: BASOPHILS 0.2 % (0-2); EOSINOPHILS 2.2 % (0-7); HEMATOCRIT 30.9 % (36.0-48.0); HEMOGLOBIN 9.3 g/dL (12-16); IMMATURE GRANULOCYTES 1.4 % (0-5); LYMPHOCYTES 17.8 % (15-50); MCH 26.6 pg (26.0-34.0); MCHC 30.1 g/dL (31.0-37.0); MCV 88.3 fL (80.0-100.0); MEAN PLATELET VOLUME 9.9 fL (7.4-10.4); MONOCYTES 7.3 % (2-11); NEUTROPHILS 71.1 % (40-80); PLATELET COUNT 339 10x3/uL (130-400); WBC 10.5 10x3/uL (4.8-10.8)
[2020-01-12 06:40] LABS: ANION GAP 9.5 mmol/L (8-16); CALCIUM 8.3 mg/dL (8.5-10.1); CARBON DIOXIDE 31.5 mmol/L (21.0-32.0); CREATININE - SERUM 0.9 mg/dL (0.6-1.3)
[2020-01-12 08:17] VITALS: BP 134/69
--- NOTE | 2020-01-12 09:00 | NUR ---
ASSESSMENT PER FLOW SHEET. PT IS WITHOUT DISTRESS.CALL LIGHT IN REACH
[2020-01-12 11:52] VITALS: BP 146/74
[2020-01-12 14:09] LABS: AEROBE ID Final report (())
--- NOTE | 2020-01-12 16:17 | OP ---
PATIENT NAME: FLORIDA CHAHAL MEDICAL RECORD: [id number] :66 LOCATION:D.MS [id number] ADMISSION DATE:01/03/20 SURGEON: ANTHONY TONG MD DATE OF OPERATION: 01/10/2020 PREOPERATIVE DIAGNOSIS: Breanne gangrene. POSTOPERATIVE DIAGNOSIS: Breanne gangrene with some spread of the gangrenous changes in the anterior, posterior, medial, and lateral dimensions. PROCEDURE: Wide excisional debridement of Breanne's gangrene of perineum, marsupialization and packing of the wound. The dimensions of the debridement, including margins, measured 21.0 cm in the anterior-posterior dimension and 60 mm in the medial-lateral dimension. I then marsupialized the wound. SURGEON: Anthony Tong MD SIGN BUILDER: Lorenzo Yen [facility]. BLOOD LOSS: 250 cc. ANESTHESIA: General. The risks, possible complications, and alternatives to the procedure were explained to the patient. She elects to proceed. The discussion specifically included, but was not limited to, bleeding requiring emergency reoperation, infection, as well as possible need for additional debridement procedures in the future. OPERATIVE COURSE: The patient was conveyed to the operating room electively on 01/10/2020. General anesthesia was induced by the anesthesia staff. The patient was placed in the lithotomy position. The perineum was sterilely prepped and draped. I then began excising portions of the left side of the perineum in an area where there is adipose tissue between the labia majora and the thigh. I did identify some planes that were fairly avascular and were excised, and this represents some spread of the Breanne gangrene. There was a good bit of induration, particularly anteriorly and posteriorly. I sequentially excised portions of indurated skin and subcutaneous tissue. The debridement included skin, subcutaneous adipose tissue, deep adipose tissue, and some thrombosed blood vessels. I excised back to a healthy bleeding tissue. Almost all the indurated tissue was excised. The dimensions of the debridement, including margins, measured 21.0 cm in the anterior-posterior dimension and 60 mm in the medial-lateral dimension. I then marsupialized the wound. The wound was marsupialized with a running locking 3-0 Vicryl Rapide suture. We then packed the wound with 3 of the 6-inch Kerlix gauzes that were soaked with quarter-strength Dakin's. A sterile dressing was then applied. The patient was then extubated and conveyed to the post-anesthesia care unit, where she was in stable condition. TRANSINT:[id number] Voice Confirmation ID: [id number] DOCUMENT ID: [id number] OPERATIVE REPORT [id number] FLORIDA CHAHAL, ANTHONY AYALA at 1617 CC: JASON OTTO MD [id number] DICTATION DATE: 01/10/20929 HORSER UP: 01/10/20 1334 ADM IN [place] [id number] [place] [id number]
[2020-01-12 17:00] VITALS: BP 151/75
--- NOTE | 2020-01-12 18:37 | NUR ---
REMAINS WITHOUT DISTRESS.CONT PLAN OF CARE
--- NOTE | 2020-01-12 19:00 | NUR ---
BEDSIDE REPORT RECEIVED AND CARE OF PT ASSUMED. PT LYING IN LOW MONTANEZ'S POSITION WITH EYES CLOSED. IV TO RIGHT FA PATENT WITH NS INFUSING AT AT KVO. DRESSING TO LEFT GROIN CLEAN AND DRY.
[2020-01-12 20:00] VITALS: BP 160/63
--- NOTE | 2020-01-12 20:43 | NUR ---
HS MEDICATIONS GIVEN TO INCLUDE NORCO PO PER REQUEST FOR PAIN.
[2020-01-13 04:00] VITALS: BP 148/74
[2020-01-13 05:20] LABS: BASOPHILS 0.2 % (0-2); EOSINOPHILS 2.5 % (0-7); HEMATOCRIT 27.3 % (36.0-48.0); HEMOGLOBIN 8.2 g/dL (12-16); IMMATURE GRANULOCYTES 0.9 % (0-5); LYMPHOCYTES 16.4 % (15-50); MCH 26.2 pg (26.0-34.0); MCV 87.2 fL (80.0-100.0); MEAN PLATELET VOLUME 9.5 fL (7.4-10.4); MONOCYTES 7.2 % (2-11); NEUTROPHILS 72.8 % (40-80); PLATELET COUNT 306 10x3/uL (130-400); RBC 3.13 10x6/uL (4.00-5.40); RDW 15.7 % (11.5-14.5); WBC 9.8 10x3/uL (4.8-10.8)
[2020-01-13 05:40] LABS: ALBUMIN 2.2 g/dL (3.4-5.0); ALKALINE PHOSPHATASE 108 U/L (30-120); ALT (SGPT) 21 U/L (10-68); BILIRUBIN - TOTAL 0.17 mg/dL (0.2-1.3); CALC OSMOLALITY 278 mosm/kg (275-300); CALCIUM 8.2 mg/dL (8.5-10.1); CARBON DIOXIDE 32.5 mmol/L (21.0-32.0); CHLORIDE - SERUM 101 mmol/L (98-107); CREATININE - SERUM 0.8 mg/dL (0.6-1.3); GLUCOSE 227 mg/dL (74-106); MAGNESIUM - SERUM 1.9 mg/dL (1.8-2.4); PHOSPHOROUS 3.4 mg/dL (2.5-4.9); POTASSIUM - SERUM 3.6 mmol/L (3.5-5.1); PROTEIN - SERUM 6.7 g/dL (6.4-8.2); SODIUM 137 mmol/L (136-145); UREA NITROGEN 6 mg/dL (7-18); eGFR NON AFRICAN AMERICAN 80 mL/min (90-120)
--- NOTE | 2020-01-13 08:07 | NUR ---
RESTING IN BED, EASILY AROUSED, CONT TO MONITOR SUGARS, DRESSING CHANGE DUE TODAY, LOOK TO COLLECT STOOL
[2020-01-13 08:45] VITALS: BP 146/85
--- NOTE | 2020-01-13 11:00 | NUR ---
DRESSING CHANGED TO LEFT GROIN, NO S/S OF INFECTION, KRISTAN WELL, CONT TO MONITOR D/T POSITION OF DSG
[2020-01-13 12:45] VITALS: BP 161/89
[2020-01-13 16:45] VITALS: BP 161/81
--- NOTE | 2020-01-13 19:00 | NUR ---
BEDSIDE REPORT RECEIVED AND CARE OF PT ASSUMED. PT LYING IN LOW MONTANEZ'S POSITION WITH EYES CLOSED. IV TO RIGHT FA PATENT WITH NS INFUSING AT 10 ML/HR.
[2020-01-13 20:00] VITALS: BP 164/83
--- NOTE | 2020-01-13 20:00 | NUR ---
CHANGED DRESSING AFTER PT VOIDED...DRESSING SOAKED WITH URINE. RE-PACKED WOUND WITH DAIKIN'S SOAKED GAUZE.
--- NOTE | 2020-01-13 20:30 | NUR ---
HS MEDICATIONS GIVEN TO INCLUDE NORCO PO PER REQUEST. FSBS 345 THIS CHECK REQUIRING COVERAGE WITH 12 UNITS OF HUMALOG PER SLIDING SCALE.
--- NOTE | 2020-01-13 22:55 | NUR ---
CHANGED OUTER DRESSING AFTER PT URINATED.
[2020-01-14] VITALS: BP 144/78
--- NOTE | 2020-01-14 02:04 | NUR ---
ASSISTED PT UP TO VOID. CHANGED OUTER DRESSING ON LEFT INGUINAL AREA.
--- NOTE | 2020-01-14 03:00 | NUR ---
IV HURTING. REMOVED WITH CATHETER TIP INTACT. RE-SITED TO LEFT HAND USING 22 GUAGE CATHETER BY FLAVIA ADAIR. IV FLUIDS AND ABX RE-STARTED.
[2020-01-14 05:45] LABS: BASOPHILS 0.2 % (0-2); EOSINOPHILS 2.8 % (0-7); HEMATOCRIT 27.1 % (36.0-48.0); HEMOGLOBIN 8.3 g/dL (12-16); IMMATURE GRANULOCYTES 1.2 % (0-5); LYMPHOCYTES 15.3 % (15-50); MCH 26.6 pg (26.0-34.0); MCHC 30.6 g/dL (31.0-37.0); MCV 86.9 fL (80.0-100.0); MEAN PLATELET VOLUME 9.5 fL (7.4-10.4); MONOCYTES 6.8 % (2-11); NEUTROPHILS 73.7 % (40-80); PLATELET COUNT 276 10x3/uL (130-400); RBC 3.12 10x6/uL (4.00-5.40); WBC 8.8 10x3/uL (4.8-10.8)
[2020-01-14 06:15] LABS: ANION GAP 8.5 mmol/L (8-16); CALCIUM 8.2 mg/dL (8.5-10.1); CARBON DIOXIDE 30.1 mmol/L (21.0-32.0); CREATININE - SERUM 0.9 mg/dL (0.6-1.3); POTASSIUM - SERUM 3.6 mmol/L (3.5-5.1)
--- NOTE | 2020-01-14 07:50 | NUR ---
up to bathroom, no distress noted, iv infusing at kvo, cont to monitor blood sugars and dressing changes
[2020-01-14 08:37] VITALS: BP 105/75
[2020-01-14 13:09] VITALS: BP 172/89
[2020-01-14 17:09] VITALS: BP 182/77
--- NOTE | 2020-01-14 17:43 | NUR ---
DRESSING CHANGES TO WOUND WITH EVERY URINATION D/T DRESSINGS GETTING WET
--- NOTE | 2020-01-14 19:00 | NUR ---
BEDSIDE REPORT RECEIVED AND CARE OF PT ASSUMED. IV TO LEFT HAND PATENT WITH NS INFUSING AT KVO. WILL MONITOR FOR NEEDS.
--- NOTE | 2020-01-14 19:31 | NUR ---
PATE INSERTED, SMALL AMT OF YELLOW URINE RETURNED, KRISTAN WELL, BAG TO GRAVITY,CONT TO MONITOR
--- NOTE | 2020-01-14 20:26 | NUR ---
HS MEDICATIONS GIVEN TO INCLUDE NORCO PO PER REQUEST FOR PAIN. FSBS 240 THIS CHECK REQUIRING COVERAGE WITH 8 UNITS OF INSULIN PER SLIDING SCALE.
[2020-01-14 20:30] VITALS: BP 184/80
[2020-01-15] VITALS (14 sets, daily range): BP systolic 114–179; BP diastolic 57–87
[2020-01-15 07:47] LABS: BASOPHILS 0.3 % (0-2); EOSINOPHILS 2.5 % (0-7); HEMATOCRIT 27.1 % (36.0-48.0); HEMOGLOBIN 8.5 g/dL (12-16); IMMATURE GRANULOCYTES 0.9 % (0-5); LYMPHOCYTES 13.5 % (15-50); MCH 26.4 pg (26.0-34.0); MCHC 31.4 g/dL (31.0-37.0); MCV 84.2 fL (80.0-100.0); MEAN PLATELET VOLUME 9.9 fL (7.4-10.4); MONOCYTES 7.3 % (2-11); NEUTROPHILS 75.5 % (40-80); PLATELET COUNT 302 10x3/uL (130-400); RBC 3.22 10x6/uL (4.00-5.40); RDW 15.7 % (11.5-14.5); WBC 9.2 10x3/uL (4.8-10.8)
[2020-01-15 08:01] LABS: CALC OSMOLALITY 278 mosm/kg (275-300); CALCIUM 8.3 mg/dL (8.5-10.1); CARBON DIOXIDE 28.3 mmol/L (21.0-32.0); CHLORIDE - SERUM 101 mmol/L (98-107); CREATININE - SERUM 0.8 mg/dL (0.6-1.3); GLUCOSE 227 mg/dL (74-106); SODIUM 137 mmol/L (136-145); UREA NITROGEN 6 mg/dL (7-18); eGFR NON AFRICAN AMERICAN 80 mL/min (90-120)
[2020-01-15 08:03] LABS: POTASSIUM - SERUM 4.2 mmol/L (3.5-5.1)
--- NOTE | 2020-01-15 09:31 | NUR ---
RESTING IN BED, NO DISTRESS NOTED, NPO, CONT TO MONITOR TILL SURERY, PATE TO GRAVITY
--- NOTE | 2020-01-15 12:30 | NUR ---
TAKEN TO SURGERY PER BED
--- NOTE | 2020-01-15 19:00 | NUR ---
BEDSIDE REPORT RECEIVED AND CARE OF PT ASSUMED. PT LYING IN LOW MONTANEZ'S POSITION WATCHING TV. DRESSING ON LEFT INGUNAL AREA CLEAN,DRY AND INTACT. IV TO LEFT HAND PATENT WITH NS INFUSING AT KVO. PATE CATHETER DRAINING TO GRAVITY WITH YELLOW URINE IN COLLECTION BAG. WILL MONITOR FOR NEEDS.
--- NOTE | 2020-01-15 20:35 | NUR ---
HS MEDICATIONS GIVEN TO INCLUDE NORCO PO PER REQUEST FOR PAIN. FSBS 307 REQUIRING COVERAGE WITH 12 UNITS OF INSULIN PER SLIDING SCALE.
--- NOTE | 2020-01-15 20:45 | NUR ---
IV TO LEFT HAND HURTING. REMOVED WITH CATHETER TIP INTACT. UNABLE TO RE-SITE AT THIS TIME.
--- NOTE | 2020-01-16 00:05 | NUR ---
ICU NURSE UNABLE TO GAIN IV ACCESS. ORDER PUT IN FOR VASCULAR ACCESS NURSE TO ADDRESS IN AM...PT MAY NEED PICC LINE SHE WILL BE ON ABX FOR A WHILE.
[2020-01-16 01:00] VITALS: BP 164/74
--- NOTE | 2020-01-16 01:25 | NUR ---
IV STARTED TO RIGHT SHOULDER BY BRYANNA CALLEJAS RN FROM ER. 20 GUAGE IN ONE STICK. IV FLUIDS RE-STARTED AND VANC STARTED.
[2020-01-16 04:25] LABS: BASOPHILS 0.2 % (0-2); EOSINOPHILS 2.4 % (0-7); HEMATOCRIT 26.8 % (36.0-48.0); HEMOGLOBIN 8.3 g/dL (12-16); IMMATURE GRANULOCYTES 0.4 % (0-5); LYMPHOCYTES 13.6 % (15-50); MCH 26.3 pg (26.0-34.0); MCV 85.1 fL (80.0-100.0); MEAN PLATELET VOLUME 9.9 fL (7.4-10.4); MONOCYTES 6.4 % (2-11); PLATELET COUNT 323 10x3/uL (130-400); RBC 3.15 10x6/uL (4.00-5.40)
[2020-01-16 05:02] LABS: ANION GAP 10.3 mmol/L (8-16); CALCIUM 8.4 mg/dL (8.5-10.1); CARBON DIOXIDE 30.5 mmol/L (21.0-32.0); MAGNESIUM - SERUM 1.9 mg/dL (1.8-2.4); PHOSPHOROUS 3.1 mg/dL (2.5-4.9); POTASSIUM - SERUM 3.8 mmol/L (3.5-5.1)
[2020-01-16 05:22] VITALS: BP 170/85
--- NOTE | 2020-01-16 07:58 | NUR ---
ALERT AND ORIENTED. LUNGS CLEAR BILATERALLY. HEART SOUNDS S1 AND S2 HEARD IN ALL MARIA. BOWEL SOUNDS ACTIVE X 4. PATE PATENT AND DRAINING YELLOW URINE. DRSG C/D/I TO LEFT PERINEAL AREA. IV TO RIGHT SHOULDER PATENT WITHOUT REDNESS. BED LOW. CALL WATTS AND PERSONAL ITEMS IN REACH. WILL CONTINUE TO MONITOR.
[2020-01-16 09:33] VITALS: BP 189/94
--- NOTE | 2020-01-16 11:41 | NUR ---
RESTING IN BED. DENIES NEEDS. WILL CONTINUE TO MONITOR.
[2020-01-16 13:21] VITALS: BP 147/82
--- NOTE | 2020-01-16 14:42 | NUR ---
Nutrition follow-up: Diet: ADA consistent CHO PO intake 75-100% of meals Pt has been NPO for several meals 2/2 surgery Labs reviewed WT: 329# RDN following.
--- NOTE | 2020-01-16 15:38 | NUR ---
PATIENT BP 176/101 REPORTED TO LEE MARSHALL. STATES WILL RESTART HOME BP MEDICATION.
--- NOTE | 2020-01-16 16:30 | NUR ---
BP DECREASED TO 168/90. WILL CONTINUE TO MONITOR.
[2020-01-16 16:45] VITALS: BP 176/101
--- NOTE | 2020-01-16 16:54 | NUR ---
DR TONG NOTIFIED THAT PATIENT OUTTER DRSG CAME OFF. ADAPTIC STILL INTACT. NEW 4X4S AND ABD PAD APPLIED. STATES OK LONG ADAPTIC STILL INTACT.
--- NOTE | 2020-01-16 18:03 | NUR ---
RESTING IN BED. DENIES NEEDS. BED LOW. CALL WATTS AND PERSONAL ITEMS IN REACH.
[2020-01-16 20:41] VITALS: BP 166/93
[2020-01-17 02:53] VITALS: BP 173/85
--- NOTE | 2020-01-17 02:59 | NUR ---
PT RESTING IN BED. EYES CLOSED. NO SIGNS OF DISTRESS. BREATHING EVEN AND UNLABORED. IV SITE RT SHOULDER. DRESSING CLEAN DRY AND INTACT. NO SIGNS OF INFECTION OR INFULTRATED. LUNG SOUNDS CLEAR. BOWEL SOUNDS ACTIVE. PATE IN PLACE. GROIN DRESSING CLEAN DRY AND INTACT. WILL CONTINUE PLAN OF CARE. CALL LIGHT IN REACH. BED LOWERED AND LOCKED. RAILS UPX2.
--- NOTE | 2020-01-17 05:02 | NUR ---
I have reviewed this patient and I concur with the Shift Assessment completed by the Licensed Practical Nurse today this shift.
[2020-01-17 05:57] VITALS: BP 175/85
[2020-01-17 07:00] LABS: ANION GAP 7.9 mmol/L (8-16); CALCIUM 8.3 mg/dL (8.5-10.1); CARBON DIOXIDE 28.9 mmol/L (21.0-32.0); MAGNESIUM - SERUM 1.8 mg/dL (1.8-2.4); PHOSPHOROUS 3.5 mg/dL (2.5-4.9); POTASSIUM - SERUM 3.8 mmol/L (3.5-5.1)
--- NOTE | 2020-01-17 07:50 | NUR ---
ALERT AND ORIENTED. LUNGS CLEAR BILATERALLY. HEART SOUNDS S1 AND S2 HEARD IN ALL MARIA. BOWEL SOUNDS ACTIVE X 4. DRSG TO LEFT GROIN C/D/I. PATE PATENT DRAINING YELLOW URINE. IV TO RIGHT SHOULDER PATENT WITHOUT REDNESS. DENIES NEEDS. BED LOW. CALL WATTS AND PERSONAL ITEMS IN REACH. WILL CONTINUE TO MONITOR.
[2020-01-17 07:55] LABS: BASOPHILS 0.4 % (0-2); EOSINOPHILS 2.5 % (0-7); HEMATOCRIT 26.6 % (36.0-48.0); HEMOGLOBIN 8.2 g/dL (12-16); IMMATURE GRANULOCYTES 0.3 % (0-5); MCH 26.3 pg (26.0-34.0); MCHC 30.8 g/dL (31.0-37.0); MCV 85.3 fL (80.0-100.0); MONOCYTES 9.1 % (2-11); NEUTROPHILS 71.7 % (40-80); PLATELET COUNT 328 10x3/uL (130-400); RBC 3.12 10x6/uL (4.00-5.40); WBC 9.3 10x3/uL (4.8-10.8)
--- NOTE | 2020-01-17 08:16 | MORECARE ---
CASE MANAGEMENT DISCHARGE SUMMARY PATIENT: FLORIDA CHAHAL UNIT: [id number] ADM DATE: 01/03/20 AGE: 49 : 66 SEX: F ROOM/BED: D.2223 AUTHOR: ALEX,DOC PHYSICIAN: REFERRING PHYSICIAN: JASON MICHEL MD DATE OF SERVICE: 01/17/20 Discharge Plan Patient Name: FLORIDA CHAHAL Facility: [facility]:[place] : 1970 Planned Disposition: Home with Home Health Anticipated Discharge Date: Discharge Date: Expected LOS: Initial Reviewer: [email or web address] Initial Review Date: 01/03/2020 Generated: 01/17/20 9:16 am DCP- Discharge Planning Updated by [email or web address]: Josefa Deepti on 01/08/20 9:[address] [facility] is out of network for insurance. Referral for home health sent to [facility] and clinical faxed. CM will continue to follow and assist with discharge planning/needs. DCP- Discharge Planning Updated by [email or web address]: Josefa Tatum on 01/05/20 3:[address] Met with patient for the third time today, she was supposed to speak with friends about home health. States she hasn't been able to talk to anyone again today. She has the list and chose [facility]. I called Jair liaison for [facility], and order and clinical faxed. CM will continue to follow and assist with discharge planning/needs. DCP- Discharge Planning Updated by [email or web address]: Josefa Reddysusie on 01/04/20 1:[address] Patient Name: FLORIDA CHAHAL Admission Status: ER Accout number: [id number] Admission Date: 01-03-2020 : 1970 Admission Diagnosis: Attending: JASON WALLER Current LOS: 1 Anticipated DC Date: Planned Disposition: Home with Home Health Primary Insurance: [facility] PRIVATE OPTIONS [facility] Discharge Planning Comments: CM met with patient to complete initial dc planning assessment. CM educated patient on the CM role and verbal consent given by patient to complete assessment. Patient lives at home alone. I verified address and phone number on face sheet. At discharge patient plans to return and feels this is a safe discharge. CM discussed availability of home health, rehab services, and medical equipment. I informed patient that typically she would need home health after discharge for packing changes to her left groin. I informed her that she would need a teachable child care that could be available for home health to instruct on how to do her packing on days that home health was not there. She states that she has many friends that are nurses that could help with that. She is going to ask one of her friends today which home health agency she should choose. I left her a list from our [facility] list on home health agencies. CM will continue to follow and will assist as needed with dc plans/needs. Indirect Sales Exec: Josefa Tatum DCPIA - Discharge Planning Initial Assessment Updated by [email or web address]: Josefa Tatum on 01/04/20 2:40 pm * Is the patient Alert and Oriented? Yes * How many steps to enter\exit or inside your home? 3/0 * PCP Dr. Michel * Pharmacy [facility] on [address] * Preadmission Environment Home Alone * ADLs Independent * Equipment None * List name and contact numbers for known caregivers / representatives who currently or will assist patient after discharge: Lisette Jackson - [phone] Luisito Palmer [facility] - [phone] * Verbal permission to speak to the caregivers and representatives has been obtained from the patient. Yes * Community resources currently utilized None * Additional services required to return to the preadmission environment? No * Can the patient safely return to the preadmission environment? Yes * Has this patient been hospitalized within the prior 30 days at any hospital? No External Providers External Provider: [facility] Next Contact Date: Service Request Date: Service Type: Resolution: Reviewer: Comments: Coverage Notice Reviewer: [email or web address] - Josefa Tatum Notice Issued Date-Time: 01/05/2020 16:53 Notice Type: Patient Choice Letter Notice Delivered To: Patient Relationship to Patient: Self Wire Mesh Knitter Name: Delivery Method: HAND - Hand Delivered Nadia Days: Prior Verbal Notification: Recipient Understood Notice: Yes Recipient Signature: Yes Med Rec Note Co-signed by Attending: Coverage Notice Comment: [facility] for [facility]. [facility] Last DP export: 01/08/20 9:23 a Patient Name: FLORIDA CHAHAL Page [id number] at 0816 All edits/amendments must be made on the electronic document DICTATION DATE: 01/17/20815 EDGE BONDER: JESSENIA 01/17/20815 RPT#: [id number] DC DATE: STATUS: ADM IN [facility] [address] [place] [address] END OF REPORT
--- NOTE | 2020-01-17 08:24 | MORECARE ---
CASE MANAGEMENT DISCHARGE SUMMARY PATIENT: FLORIDA CHAHAL UNIT: [id number] ADM DATE: 01/03/20 AGE: 49 : 66 SEX: F ROOM/BED: D.2223 AUTHOR: ALEX,DOC PHYSICIAN: REFERRING PHYSICIAN: JASON MICHEL MD DATE OF SERVICE: 01/17/20 Discharge Plan Patient Name: FLORIDA CHAHAL Facility: [facility]:[place] : 1970 Planned Disposition: Home with Home Health Anticipated Discharge Date: Discharge Date: Expected LOS: Initial Reviewer: [email or web address] Initial Review Date: 01/03/2020 Generated: 01/17/20 9:23 am Comments DCP- Discharge Planning Updated by [email or web address]: Josefa Tatum on 01/17/20 7:[address] Lord's dressing change order faxed to [facility]. CM will continue to follow and assist with discharge planning/needs. DCP- Discharge Planning Updated by [email or web address]: Josefa Tatum on 01/08/20 9:[address] [facility] is out of network for insurance. Referral for home health sent to [facility] and clinical faxed. CM will continue to follow and assist with discharge planning/needs. DCP- Discharge Planning Updated by [id number]: Josefa Tatum on 01/05/20 3:[address] Met with patient for the third time today, she was supposed to speak with friends about home health. States she hasn't been able to talk to anyone again today. She has the list and chose [facility]. I called Jair liaison for [facility], and order and clinical faxed. CM will continue to follow and assist with discharge planning/needs. DCP- Discharge Planning Updated by [email or web address]: Josefa Tatum on 01/04/20 1:[address] Patient Name: FLORIDA CHAHAL Admission Status: ER Accout number: [id number] Admission Date: 01-03-2020 : 1970 Admission Diagnosis: Attending: JASON WALLER Current LOS: 1 Anticipated DC Date: Planned Disposition: Home with Home Health Primary Insurance: [place] [employer]IVATE OPTIONS [facility] Discharge Planning Comments: CM met with patient to complete initial dc planning assessment. CM educated patient on the CM role and verbal consent given by patient to complete assessment. Patient lives at home alone. I verified address and phone number on face sheet. At discharge patient plans to return and feels this is a safe discharge. CM discussed availability of home health, rehab services, and medical equipment. I informed patient that typically she would need home health after discharge for packing changes to her left groin. I informed her that she would need a teachable daytime caregiver that could be available for home health to instruct on how to do her packing on days that home health was not there. She states that she has many friends that are nurses that could help with that. She is going to ask one of her friends today which home health agency she should choose. I left her a list from our SAMANTHA list on home health agencies. CM will continue to follow and will assist as needed with dc plans/needs. Medical Equipment Sales: Josefa Tatum DCPIA - Discharge Planning Initial Assessment Updated by [id number]: Josefa Tatum on 01/04/20 2:40 pm * Is the patient Alert and Oriented? Yes * How many steps to enter\exit or inside your home? 3/0 * PCP Dr. Michel * Pharmacy [facility] on [address] * Preadmission Environment Home Alone * ADLs Independent * Equipment None * List name and contact numbers for known caregivers / representatives who currently or will assist patient after discharge: Lisette Jackson - [phone] Luisito Palmer [facility] - [phone] * Verbal permission to speak to the caregivers and representatives has been obtained from the patient. Yes * Community resources currently utilized None * Additional services required to return to the preadmission environment? No * Can the patient safely return to the preadmission environment? Yes * Has this patient been hospitalized within the prior 30 days at any hospital? No Coverage Notice Reviewer: [id number] - Josefa Tatum Notice Issued Date-Time: 01/05/2020 16:53 Notice Type: Patient Choice Letter Notice Delivered To: Patient Relationship to Patient: Self Noteman Name: Delivery Method: HAND - Hand Delivered Nadia Days: Prior Verbal Notification: Recipient Understood Notice: Yes Recipient Signature: Yes Med Rec Note Co-signed by Attending: Coverage Notice Comment: [facility] for 1. [facility]. [place] [facility] Last DP export: 01/17/20 7:16 a Patient Name: FLORIDA CHAHAL #: [id number] Page [id number] at 0824 All edits/amendments must be made on the electronic document DICTATION DATE: 01/17/20822 BEEF FARMER: JESSENIA 01/17/20822 RPT#: [id number] DC DATE: STATUS: ADM IN [facility] [address] [place] [address] END OF REPORT
[2020-01-17 09:37] VITALS: BP 138/76
[2020-01-17 13:16] VITALS: BP 156/90
[2020-01-17 17:32] VITALS: BP 153/91
--- NOTE | 2020-01-17 18:19 | NUR ---
RESTING IN BED. DENIES NEEDS. BED LOW. CALL WATTS AND PERSONAL ITEMS IN REACH.
[2020-01-17 22:12] VITALS: BP 153/74
[2020-01-18 00:56] VITALS: BP 102/57
--- NOTE | 2020-01-18 01:43 | NUR ---
PT CALLED ME TO HER ROOM. PT STATED SHE WENT TO THE BATHROOM AND HER DRESING TO HER GROIN FELL OUT. I EXAMINED THE WOUND AND FOUND NO DRESSING OR ADAPTIC PRESENT. PUT IN A PAGE FOR DR. TONG ON HOW HE WANTS ME TO FURTHER ADDRESS THE WOUND WITH ADAPTIC OUT. WILL FALLOW UP.
--- NOTE | 2020-01-18 02:11 | NUR ---
COVERED WOUND WITH 4X4 DRESSINGS FOR RIGHT NOW. PER DR. TONG ORDER. WILL FALLOW UP.
--- NOTE | 2020-01-18 03:50 | NUR ---
PT RESTING IN BED. EYES CLOSED. NO SIGNS OF DISTRESS. BREATHING EVEN AND UNLABORED. IV SITE RT SHOULDER. DRESSING CLEAN DRY AND INTACT. NO SIGNS OF INFECTION OR INFULTRATION. LUNG SOUNDS CLEAR. BOWEL SOUNDS ACTIVE. WOUND LT GROIN DRESSING CLEAN DRY AND INTACT. WILL CONTINUE PLAN OF CARE. CALL LIGHT IN REACH. BED LOWERED AND LOCKED. BED RAILS UPX2.
[2020-01-18 04:46] VITALS: BP 130/70
[2020-01-18 04:56] LABS: BASOPHILS 0.3 % (0-2); EOSINOPHILS 1.9 % (0-7); HEMATOCRIT 27.6 % (36.0-48.0); HEMOGLOBIN 8.5 g/dL (12-16); IMMATURE GRANULOCYTES 0.3 % (0-5); LYMPHOCYTES 13.8 % (15-50); MCH 26.2 pg (26.0-34.0); MCHC 30.8 g/dL (31.0-37.0); MCV 84.9 fL (80.0-100.0); MEAN PLATELET VOLUME 10.1 fL (7.4-10.4); MONOCYTES 6.8 % (2-11); NEUTROPHILS 76.9 % (40-80); PLATELET COUNT 328 10x3/uL (130-400); RBC 3.25 10x6/uL (4.00-5.40); RDW 15.9 % (11.5-14.5); WBC 10.7 10x3/uL (4.8-10.8)
--- NOTE | 2020-01-18 05:00 | NUR ---
I have reviewed this patient and I concur with the Shift Assessment completed by the Licensed Practical Nurse today this shift.
[2020-01-18 05:15] LABS: ANION GAP 13.5 mmol/L (8-16); CALCIUM 8.3 mg/dL (8.5-10.1); CARBON DIOXIDE 27.4 mmol/L (21.0-32.0); MAGNESIUM - SERUM 1.8 mg/dL (1.8-2.4); PHOSPHOROUS 3.1 mg/dL (2.5-4.9); POTASSIUM - SERUM 3.9 mmol/L (3.5-5.1)
[2020-01-18 09:16] VITALS: BP 146/75
--- NOTE | 2020-01-18 09:19 | NUR ---
PT CALLED FOR STAFF. ENTERED ROOM. PT REQUESTING BLOOD SUGAR TO BE CHECKED SHE FEELS THAT IT MAY BE DROPPING. BS CHECKED, 176 AT THIS TIME. RESP EVEN AND UNLABORED. F/C PATENT TO GRAVITY. DENIES FURTHER NEEDS AT THIS TIME. CL WITHIN REACH. ENCOURAGED TO CALL WITH NEEDS. CONTINUE POC
--- NOTE | 2020-01-18 10:32 | NUR ---
0940 HOLD PICC PLACEMENT FOR NOW PT MAY NOT BE GOING HOME ON IV ABX PER ANALI DAY.
[2020-01-18 12:24] VITALS: BP 118/75
[2020-01-18] MEDS ORDERED: COLACE100 MG PO (14:20)
[2020-01-18] MEDS ORDERED: PROTONIX40 MG PO (14:21)
--- NOTE | 2020-01-18 16:08 | NUR ---
PERINEAL WOUND SURGICALLY DEBRIDED 01/15/2020. WOUND BED IS RED WITH A FEW ISLANDS OF BLACK TISSUE. 90% RED/ 10% BLACK. NO ODOR NOTED. THICK YELLOW EXUDATE IS NOTED WHICH IS EXPECTED WHEN USING A-CELL FOR WOUND MANAGEMENT. APPLIED LUBRICATING GEL TO ADAPTIC AND PLACED IN WOUND BED. COVERED WITH 4X4S AND ABD PAD AND SECURED WITH TAPE. PT TOLERATED WELL.
[2020-01-18 17:24] VITALS: BP 141/69
--- NOTE | 2020-01-18 22:57 | NUR ---
REVIEWED DISCHARGE INSTRUCTIONS INCLUDING WOUND CARE WITH PATIET. DR. TONG SAID OK TO DISCHARGE PT WITH PATE. INSTRUCTED PT ON PATE CARE. REMOVED RIGHT SHOULDER IV CATHETER INTACT. TRANSPORTED PATIENT FROM FLOOR TO RIDE VIA WHEELCHAIR.
--- NOTE | 2020-01-19 08:38 | MORECARE ---
CASE MANAGEMENT DISCHARGE SUMMARY PATIENT: FLORIDA CHAHAL UNIT: [id number] ADM DATE: 01/03/20 AGE: 49 : 66 SEX: F ROOM/BED: D.2223 AUTHOR: ALEX,DOC PHYSICIAN: REFERRING PHYSICIAN: JASON MICHEL MD DATE OF SERVICE: 01/19/20 Discharge Plan Patient Name: FLORIDA CHAHAL Facility: [facility]:[place] : 1970 Planned Disposition: Home with Home Health Anticipated Discharge Date: Discharge Date: 01/18/2020 Expected LOS: Initial Reviewer: [email or web address] Initial Review Date: 01/03/2020 Generated: 01/19/20 9:38 am Comments DCP- Discharge Planning Updated by [id number]: Josefa Tatum on 01/19/20 7:[address] Patient was discharged home last night. I called and spoke to Miracle with [facility] and she states she is on the schedule to see today. I asked Miracle to make sure she filled her RX for Cipro. DCP- Discharge Planning Updated by [email or web address]: Josefa Tatum on 01/17/20 7:[address] Lord's dressing change order faxed to [facility]. CM will continue to follow and assist with discharge planning/needs. DCP- Discharge Planning Updated by [id number]: Josefa Tatum on 01/08/20 9:[address] [facility] is out of network for insurance. Referral for home health sent to [facility] and clinical faxed. CM will continue to follow and assist with discharge planning/needs. DCP- Discharge Planning Updated by [email or web address]: Josefa Tatum on 01/05/20 3:[address] Met with patient for the third time today, she was supposed to speak with friends about home health. States she hasn't been able to talk to anyone again today. She has the list and chose [facility]. I called Jair liaison for [facility], and order and clinical faxed. CM will continue to follow and assist with discharge planning/needs. DCP- Discharge Planning Updated by [id number]: Josefa Tatum on 01/04/20 1:[address] Patient Name: FLORIDA CHAHAL Admission Status: ER Accout number: [id number] Admission Date: 01-03-2020 : 1970 Admission Diagnosis: Attending: JASON WALLER Current LOS: 1 Anticipated DC Date: Planned Disposition: Home with Home Health Primary Insurance: [facility] [employer] OPTIONS BASIL Discharge Planning Comments: CM met with patient to complete initial dc planning assessment. CM educated patient on the CM role and verbal consent given by patient to complete assessment. Patient lives at home alone. I verified address and phone number on face sheet. At discharge patient plans to return and feels this is a safe discharge. CM discussed availability of home health, rehab services, and medical equipment. I informed patient that typically she would need home health after discharge for packing changes to her left groin. I informed her that she would need a teachable pediatric acute care unit nurse that could be available for home health to instruct on how to do her packing on days that home health was not there. She states that she has many friends that are nurses that could help with that. She is going to ask one of her friends today which home health agency she should choose. I left her a list from our [facility] list on home health agencies. CM will continue to follow and will assist as needed with dc plans/needs. Supervisor Air Conditioning Installer: Josefa Tatum DCPIA - Discharge Planning Initial Assessment Updated by [email or web address]: Josefa Tatum on 01/04/20 2:40 pm * Is the patient Alert and Oriented? Yes * How many steps to enter\exit or inside your home? 3/0 * PCP Dr. Michel * Pharmacy [facility] * Preadmission Environment Home Alone * ADLs Independent * Equipment None * List name and contact numbers for known caregivers / representatives who currently or will assist patient after discharge: Lisette Jackson - [phone] Luisito [facility] - [phone] * Verbal permission to speak to the caregivers and representatives has been obtained from the patient. Yes * Community resources currently utilized None * Additional services required to return to the preadmission environment? No * Can the patient safely return to the preadmission environment? Yes * Has this patient been hospitalized within the prior 30 days at any hospital? No Coverage Notice Reviewer: [email or web address] - Josefa Tatum Notice Issued Date-Time: 01/05/2020 16:53 Notice Type: Patient Choice Letter Notice Delivered To: Patient Relationship to Patient: Self Contact Lens Curve Grinder Name: Delivery Method: HAND - Hand Delivered Nadia Days: Prior Verbal Notification: Recipient Understood Notice: Yes Recipient Signature: Yes Med Rec Note Co-signed by Attending: Coverage Notice Comment: [facility] for [facility]. [facility]. [facility] Last DP export: 01/17/20 7:24 a Patient Name: FLORIDA CHAHAL Page [id number] at 0838 All edits/amendments must be made on the electronic document DICTATION DATE: 01/19/20837 RAIL SWITCH OPERATOR: JESSENIA 01/19/20837 RPT#: [id number] DC DATE:01/18/20 STATUS: DIS IN [facility] [address] [place] [address] END OF REPORT
--- NOTE | 2020-01-19 17:10 | MORECARE ---
CASE MANAGEMENT DISCHARGE SUMMARY PATIENT: FLORIDA CHAHAL UNIT: [id number] ADM DATE: 01/03/20 AGE: 49 : 66 SEX: F ROOM/BED: D.2223 AUTHOR: ALEX,DOC PHYSICIAN: REFERRING PHYSICIAN: JASON MICHEL MD DATE OF SERVICE: 01/19/20 Discharge Plan Patient Name: FLORIDA CHAHAL Facility: [facility]:[place] : 1970 Planned Disposition: Home with Home Health Anticipated Discharge Date: Discharge Date: 01/18/2020 Expected LOS: 0 Initial Reviewer: [email or web address] Initial Review Date: 01/03/2020 Generated: 01/19/20 6:10 pm Comments DCP- Discharge Planning Updated by [id number]: Josefa Tatum on 01/19/20 7:[address] Patient was discharged home last night. I called and spoke to Miracle with [facility] and she states she is on the schedule to see today. I asked Miracle to make sure she filled her RX for Cipro. DCP- Discharge Planning Updated by [email or web address]: Josefa Tatum on 01/17/20 7:[address] Lord's dressing change order faxed to [facility]. CM will continue to follow and assist with discharge planning/needs. DCP- Discharge Planning Updated by [email or web address]: Josefa Tatum on 01/08/20 9:[address] [facility] is out of network for insurance. Referral for home health sent to [facility] and clinical faxed. CM will continue to follow and assist with discharge planning/needs. DCP- Discharge Planning Updated by [id number]: Josefa Tatum on 01/05/20 3:[address] Met with patient for the third time today, she was supposed to speak with friends about home health. States she hasn't been able to talk to anyone again today. She has the list and chose [facility]. I called Jair liaison for [facility], and order and clinical faxed. CM will continue to follow and assist with discharge planning/needs. DCP- Discharge Planning Updated by [id number]: Josefa Tatum on 01/04/20 1:[address] Patient Name: FLORIDA CHAHAL Admission Status: ER Accout number: [id number] Admission Date: 01-03-2020 : 1970 Admission Diagnosis: Attending: JASON AWLLER Current LOS: 1 Anticipated DC Date: Planned Disposition: Home with Home Health Primary Insurance: [facility] PRIVATE OPTIONS BASIL Discharge Planning Comments: CM met with patient to complete initial dc planning assessment. CM educated patient on the CM role and verbal consent given by patient to complete assessment. Patient lives at home alone. I verified address and phone number on face sheet. At discharge patient plans to return and feels this is a safe discharge. CM discussed availability of home health, rehab services, and medical equipment. I informed patient that typically she would need home health after discharge for packing changes to her left groin. I informed her that she would need a teachable complex care nurse practitioner that could be available for home health to instruct on how to do her packing on days that home health was not there. She states that she has many friends that are nurses that could help with that. She is going to ask one of her friends today which home health agency she should choose. I left her a list from our [facility] list on home health agencies. CM will continue to follow and will assist as needed with dc plans/needs. Web Development Director: Josefa Tatum DCPIA - Discharge Planning Initial Assessment Updated by [id number]: Josefa Tatum on 01/04/20 2:40 pm * Is the patient Alert and Oriented? Yes * How many steps to enter\exit or inside your home? 3/0 * PCP Dr. Michel * Pharmacy [facility] * Preadmission Environment Home Alone * ADLs Independent * Equipment None * List name and contact numbers for known caregivers / representatives who currently or will assist patient after discharge: Lisette Jackson - [phone] [facility] - [phone] * Verbal permission to speak to the caregivers and representatives has been obtained from the patient. Yes * Community resources currently utilized None * Additional services required to return to the preadmission environment? No * Can the patient safely return to the preadmission environment? Yes * Has this patient been hospitalized within the prior 30 days at any hospital? No Coverage Notice Reviewer: [id number] - Josefa Tatum Notice Issued Date-Time: 01/05/2020 16:53 Notice Type: Patient Choice Letter Notice Delivered To: Patient Relationship to Patient: Self Photoengraving Finisher Name: Delivery Method: HAND - Hand Delivered Nadia Days: Prior Verbal Notification: Recipient Understood Notice: Yes Recipient Signature: Yes Med Rec Note Co-signed by Attending: Coverage Notice Comment: [facility] for 1. [facility] 2. [facility] Last DP export: 01/19/20 7:38 a Patient Name: FLORIDA CHAHAL Page [phone] at 1710 All edits/amendments must be made on the electronic document DICTATION DATE: 01/19/201709 COST AND SALES RECORD SUPERVISOR: JESSENIA 01/19/201709 RPT#: [id number] DC DATE:01/18/20 STATUS: DIS IN [facility] [address] [place] [address] END OF REPORT
--- NOTE | 2020-01-31 10:21 | OP ---
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 3. New area 2.5 x 3.0 cm of subcutaneous adipose tissue, which was necrotic. PROCEDURE: Excisional debridement of perineal wound. The tissue debrided only included necrotic fat and the dimensions are listed above. Placement of ACell MicroMatrix acellular Xenograft. This is a skin substitute. I utilized the wound matrix particles as well as sheets of ACell. The dimensions of the treated area on which the skin substitute was placed is 120 square cms. SURGEON: Anthony Tong MD PIPING DESIGN SPECIALIST: None. BLOOD LOSS: Minimal. ANESTHESIA: General. COMPLICATIONS: None. The risks, possible complications, and alternatives to the procedure were explained to the patient. She elects to proceed. OPERATIVE COURSE: The patient was conveyed to the operating room electively on 01/15/2020. General anesthesia was induced by the anesthesia staff. The patient was placed in the lithotomy position. The perineum was sterilely prepped and draped. Through the use of sharp dissection, I excised some additional necrotic adipose tissue. The dimensions of the debridement are listed above. I debrided back to bleeding viable tissue. Hemostasis was achieved with electrocautery. I then irrigated the wound with normal saline. Some of the wound matrix particles were then used and were essentially created into paste and then used to coat the surfaces of the open wound. I then used 2 large sheets of ACell which had been meshed and placed these on the open wound. A nonstick dressing was then applied and on top of this a bulky dry dressing. The dimensions of the treated tissue with sheath of the ACell is listed above. The patient was then extubated and conveyed to post-anesthesia care unit where she was in stable condition. TRANSINT:[id number] Voice Confirmation ID: [id number] DOCUMENT ID: [id number] OPERATIVE REPORT [id number] FLORIDA CHAHAL ROBERT MD at 1021 CC: [id number] DICTATION DATE: 01/26/20 1623 COLORING CHECKER: 01/26/20 2205 DIS IN 01/18/20 [facility] [address] [place] [id number]
== END 2020-01-18 23:01 | disposition home health service (06) | DRG 264 ==
LOC: D.ER 23:34 → D.MS 01-03 02:24
PROVIDERS: Emergency Medicine; Family Medicine; Surgery; ADMIT Family Medicine Adult Medicine; ATTEND Family Medicine Adult Medicine
PROC: 0JBB0ZZ Excision of Perineum Subcutaneous Tissue and Fascia, Open Approach (ICD-10-PCS; principal; 2020-01-03 14:45)
PROC: 0JBB0ZZ Excision of Perineum Subcutaneous Tissue and Fascia, Open Approach (ICD-10-PCS; 2020-01-10)
PROC: 0HR9XK3 Replacement of Perineum Skin with Nonautologous Tissue Substitute, Full Thickness, External Approach (ICD-10-PCS; 2020-01-15)
PROC: 0JBB0ZZ Excision of Perineum Subcutaneous Tissue and Fascia, Open Approach (ICD-10-PCS; 2020-01-15)
DX: E11.52 Type 2 diabetes mellitus with diabetic peripheral angiopathy with gangrene (principal); I96 Gangrene, not elsewhere classified; L02.214 Cutaneous abscess of groin; Z68.43 Body mass index [BMI] 50.0-59.9, adult; E87.0 Hyperosmolality and hypernatremia; L03.314 Cellulitis of groin; N76.89 Other specified inflammation of vagina and vulva; E11.65 Type 2 diabetes mellitus with hyperglycemia; D64.9 Anemia, unspecified; I10 Essential (primary) hypertension; J44.9 Chronic obstructive pulmonary disease, unspecified; M19.90 Unspecified osteoarthritis, unspecified site; E66.01 Morbid (severe) obesity due to excess calories; F32.9 Major depressive disorder, single episode, unspecified; B96.89 Other specified bacterial agents as the cause of diseases classified elsewhere